=== PATIENT | male | born 1975 | race Caucasian/White ===

== ENCOUNTER 2021-01-05 13:08 | Outpatient (REF) | payer OTHER, SELFPAY ==
[2021-01-05 14:57] LABS: Erythrocyte Sedimentation Rate 2 MM/HR (0-15)
[2021-01-06 06:45] LABS: Syphilis Screen Nonreactive (Nonreactive)
[2021-01-07 05:31] LABS: Lyme Abs Screen <0.90 index
[2021-01-08 13:42] LABS: Anti Nuclear Antibody Screen NEGATIVE (NEGATIVE)
== END 2021-01-05 13:09 | disposition home or self-care (01) ==
LOC: HO.LAB 13:08
PROVIDERS: PCP Internal Medicine; Visit Provider Psychiatry & Neurology Neurology
DX: G93.40 Encephalopathy, unspecified (principal)
CPT/HCPCS: 36415; 85652; 86038; 86039; 86617; 86618; 86780

== ENCOUNTER 2023-02-16 15:46 | Outpatient (AMB) | payer OTHER, SELFPAY ==
[2023-02-16 16:21] VITALS: BP 120/70; PULSE 62; O2SAT 97; BMI 29.8
--- NOTE | 2023-02-16 16:21 | MHC.PC.OV ---
Vital Signs 02/16/23 16:21 Height 5 ft 9 in Weight 202 lb BMI 29.8 BP 120/70 Blood Pressure Location Lt brachial Position Sitting Pulse 62 Pulse Source Pulse Oximeter Pulse Oximetry (%) 97 Intake Visit Reasons: Annual PE Intake Note: pt is here for physical exam, pt states he would like oral medication vs topical for psoriasis and would like to request pcp to take over maintenance of pysch medications Allergies No Known Allergies Allergy (Verified 02/16/23 16:53) Medication List - Last Reconciled 02/16/23 by Raquel Pathak MD clotrimazole-betamethasone 1-0.05 % 1 appl topical BID 10 days escitalopram oxalate 10 mg PO DAILY escitalopram oxalate 5 mg PO DAILY fluocinonide 0.05% 1 appl topical DAILY fluocinonide 0.05% 1 appl topical DAILY PRN hydroxyzine pamoate 25 mg PO .qd PRN ibuprofen 600 mg PO Q6H PRN lorazepam 0.5 mg PO DAILY PRN mirtazapine 3.75 mg PO BEDTIME PRN propranolol ER 60 mg PO DAILY Tobacco use date assessed: 02/16/23 Dental Screening Dental Screen Date: 02/16/23 Did you have a dental visit in the last 12 months?: Yes Did you have a dental problem in the last 6 months where you did not have access to dental care?: No Was dental information given to patient?: Patient has dentist HPI Annual PE HPI Details 47-year-old male with generalized anxiety disorder currently stable and controlled on escitalopram 15 mg taken daily, takes hydroxyzine as needed for acute anxiety attacks, and has lorazepam reserved for severe acute anxiety attacks but has seldom needed to take. He states that he has been stable and controlled on these medications, and his psychiatrist at [facility], which he sees online, would like to see if he taken transfer care, as he is currently stable on present treatment. He has psoriasis mainly in the scalp,pinna, intergluteal crease and right knee, which he states is starting to progress, now causing pain in his right knee. He has been applying fluocinonide ointment to scalp and cream to in lesions which has not been helping as much. Like a referral to see a extrusion press supervisor. He was previously being seen by Dr. Nunez at the [facility] but is thinking of going to the [place] office where his sister works. He is due for a screening colonoscopy, but would like to see if he can do the Cologuard testing instead. [facility] Medical History (Updated 02/16/23 @ 17:54 by Raquel Pathak MD) Generalized anxiety disorder H/O multiple concussions Psoriasis Surgical History History of knee surgery Family History Father Essential hypertension Sister Depression Sister Mental health disorder Sister Mental health disorder Social History Household Members: Spouse and Children Housing: House Alcohol intake: current Alcohol intake frequency: a few times a week Alcohol type: beer Patient Tobacco Use Status: Never used Tobacco Current occupational status: employed Current occupation: [employer] [place] Current occupational exposures/hazards: No Cognitive needs: No Hearing needs: No Vision needs: No Questionnaire PHQ-9 Over the last 2 weeks, how often have you been bothered by any of the following problems? 1. Little interest or pleasure in doing things: not at all 2. Feeling down, depressed, or hopeless: not at all 3. Trouble falling or staying asleep, or sleeping too much: not at all 4. Feeling tired or having little energy: not at all 5. Poor appetite or overeating: not at all 6. Feeling bad about yourself - or that you are a failure or have let yourself or your family down: not at all 7. Trouble concentrating on things, such as reading the newspaper or watching television: not at all 8. Moving or speaking so slowly that other people could have noticed. Or the opposite - being so fidgety or restless that you have been moving around a lot more than usual: not at all 9. Thoughts that you would be better off or of hurting yourself in some way: not at all Total score: 0 Depression Screening Interpretation: Negative 23205 - PHQ-9 Billing: Yes Source: Developed by Drs. René Coburn, Lidia Og, Lukasz Jovel and colleagues, with an educational marion from [employer]. Thrive Questionnaire Date Thrive assessed: 02/16/23 I am a: Patient What is your living situation today?: I have a steady place to live Within the past 12 months, did the food you bought not last and you didn't have the money to get more?: Never true Within the past 12 months, did you worry whether your food would run out before you got money to buy more?: Never true Do you have trouble paying for medicines?: No Do you have trouble getting transportation to medical appointments?: No Do you have trouble paying your heating and electricity bill?: No Do you have trouble taking care of your child, family member or friend?: No Do you have trouble with day-to-day activities such as bathing, preparing meals, shopping, managing finances, etc.?: No Are you currently unemployed and looking for a job?: No Are you interested in more education?: No Please select the resources that you would like help with: None Currently or been in a relationship where the following occur: no concerns reported WILLA-7 AMB Questionnaire WILLA-7 Date WILLA - 7 assessed: 02/16/23 Feeling nervous, anxious, or on edge: 1 = Several days Not being able to stop or control worryin = Several days Worrying too much about different things: 0 = Not at all Trouble relaxin = Not at all Being so restless that it is hard to sit still: 0 = Not at all Becoming easily annoyed or irritable: 0 = Not at all Feeling afraid as if something awful might happen: 0 = Not at all Total WILLA-7 score (0-4 normal; 5-9 mild; 10-14 moderate; 15-21 severe): 2 Source: Developed by Drs. René Coburn, Lidia Og, Lukasz Jovel and colleagues, with an educational marion from [employer]. WILLA-7 Assessment Billing WILLA-7 Assessment Tool: WILLA-7 Assessment 20690 Review of Systems Const Denies body aches, Denies fatigue, Denies fever(s), Denies headache(s) and Denies weakness Eyes Denies change in vision, Denies eye discharge and Denies itchy eyes ENT Denies dizziness, Denies headache(s), Denies nasal congestion, Denies nasal discharge and Denies sore throat Card Denies chest pain, Denies lightheadedness, Denies palpitations and Denies dyspnea Resp Denies chest congestion, Denies cough, Denies dyspnea and Denies wheezing GI Denies abdominal pain, Denies change in bowel habits and Denies heartburn Denies hematuria, Denies difficulty urinating, Denies dysuria, Denies urinary frequency and Denies urinary urgency Musc Reports as per HPI Skin/Breast Reports as per HPI, Denies breast pain, Denies breast mass and Reports dry skin Neuro Denies dizziness, Denies headache(s) and Denies weakness Psych Reports no additional complaints and Reports as per HPI Endo Denies fatigue, Denies polydipsia, Denies polyuria and Denies palpitations Adam/Lymph Denies easy bruising Aller/Immun Denies itchy eyes, Denies seasonal rhinorrhea and Denies wheezing Physical exam (Primary Care) Vital Signs: Last Vital Signs Pulse 62 02/16/23 16:21 BP 120/70 02/16/23 16:21 Pulse Ox 97 02/16/23 16:21 BMI result Body Mass Index 29.8 Tobacco/Smoking Status: Tobacco use Status Tobacco use date assessed 02/16/23 02/16/23 16:27 Patient Tobacco Use Status Never used Tobacco 02/16/23 16:27 PHQ-9: PHQ-9 Score PHQ-9: Total score 0 02/16/23 17:02 Depression Screening Interpretation: Negative Thrive Assessment: Date of Thrive Assessment Date Thrive assessed 02/16/23 02/16/23 16:36 Currently or been in a relationship where the following occur: no concerns reported Const General: cooperative, healthy appearing, comfortable, no acute distress, alert and Physically active Nutritional Appearance: overweight Orientation/consciousness: patient oriented x3 HENFL Head: Yes normocephalic and Yes scalp lesion (Scaly lesion on scalp) Ears: hearing grossly normal bilaterally, TM's normal bilaterally, EAC's normal and external ear abnormal (Dry scaly lesion on pinna bilaterally) General nose exam: Normal external nose present Face and sinus: Yes face symmetric Mouth: Normal oral and palatal mucosa present, oropharynx normal and moist mucous membranes Eyes General: appearance normal, both eyes and all related structures Neck Neck: Yes full ROM, Yes no lymphadenopathy and Yes supple Thyroid: Thyroid normal Resp Effort & Inspection: normal respiratory effort and able to speak in complete sentences Auscultation: clear to auscultation bilaterally Cardio Rate: regular rate Rhythm: regular rhythm Heart sounds: S1 normal heart sound present and S2 normal heart sound present GI Inspection: Yes normal to inspection Palpation (GI): Soft to palpation, nontender, no guarding and no masses General: Yes Bimanual renal exam normal bilaterally and Yes no CVA tenderness Male General Exam: Yes normal external exam Back/Spine/Pelvis Back: no CVA tenderness and No back tenderness Skin Other: Raised scaly plaque formation on right knee, dry scaly rash on pinna bilaterally, scaly patch on intergluteal crease Neuro General: patient oriented x3, gait normal, tone normal, moves all extremities, Normal light touch and pain sensation, no focal motor deficits and CN's II-XI intact bilaterally Extrem General: Yes full ROM, Yes no joint enlargement, Yes no clubbing, cyanosis or edema and Yes normal gait Psych Appearance: grossly normal Mental Status: mental status grossly normal Attitude: cooperative Thought process: Normal thought process present Thought content: Normal thought content present Assessment and Plan Assessment & Plan (1) Annual visit for general adult medical examination with abnormal findings: Code(s): Z00.01 - Encounter for general adult medical examination with abnormal findings Plan: Will check appropriate labs. Continue with regular dental visit every 6 months and advised to get regular eye exams, at least every 2 years. Take adequate calcium in diet and vitamin-D 3 at 2000 IU per cap once a day, in addition to weight-bearing exercises to help maintain good muscle tone and weight control. Instructed to do self testicular exam to check for any mass, has had COVID vaccines but has not yet had his booster, recommended to get the new COVID booster that is coming out in the fall. Declines to get flu shots, up-to-date with his Tdap. Does not want to get a screening colonoscopy but will check with insurance if Cologuard covered and will do that instead (2) Psoriasis: Comment: Followed by dermatology, has lesions on scalp and arms Code(s): L40.9 - Psoriasis, unspecified Plan: Continue with fluocinonide ointment and cream as directed, patient states that he will try to get in to be seen at [facility] in [facility] and will call me if a referral is needed (3) Generalized anxiety disorder: Comment: Currently being seen by [facility] Psychiat[facility] Code(s): F41.1 - Generalized anxiety disorder Plan: Stable and controlled on escitalopram 15 mg once a day and takes hydroxyzine as needed for acute attacks of anxiety, reserves lorazepam for severe panic attacks, which he has seldom needed to take. As per patient his therapist and psychiatrist would like PCP to take over treatment as he has been stable and controlled on current medication. Orders: Orders Basic Metabolic Panel Fasting Today L40.9 - Psoriasis, unspecified, Z00.01 - Encounter for general adult medical examination with abnormal findings Alanine Aminotransferase Today L40.9 - Psoriasis, unspecified, Z00.01 - Encounter for general adult medical examination with abnormal findings Aspartate Amino Transferase Today L40.9 - Psoriasis, unspecified, Z00.01 - Encounter for general adult medical examination with abnormal findings Lipid Panel Today L40.9 - Psoriasis, unspecified, Z00.01 - Encounter for general adult medical examination with abnormal findings Review Flu Vaccine not done: patient reason (Declined) Coding Level of Care Code Est Pt Prev Care 40-64y(34430) Diagnoses Annual visit for general adult medical examination with abnormal findings Z00.01 Psoriasis L40.9 Generalized anxiety disorder F41.1 Additional Codes WILLA-7 Assessment Billing - WILLA-7 Assessment Tool: WILLA-7 Assessment 12930 ([id number])
== END 2023-02-16 17:15 | disposition home or self-care (01) ==
PROVIDERS: Visit Provider Internal Medicine
DX: Z00.01 Encounter for general adult medical examination with abnormal findings (principal); L40.9 Psoriasis, unspecified; F41.1 Generalized anxiety disorder
CPT/HCPCS: 99396

== ENCOUNTER 2023-02-21 06:06 | Outpatient (REF) | payer OTHER, SELFPAY ==
[2023-02-21 12:13] LABS: Alanine Aminotransferase 19 U/L (0-40); Anion Gap 12 (12-20); Aspartate Amino Transferase 20 U/L (5-37); Blood Urea Nitrogen 23 mg/dL (9-16); Calcium 9.8 mg/dL (8.4-10.2); Carbon Dioxide 24 mmol/L (22-29); Chloride 107 mmol/L (96-108); Cholesterol 231 mg/dL (<200); Estimated Glomerular Filt Rate > 60; Glucose Fasting 98 mg/dL (60-99); HDL Cholesterol 58 mg/dL (>40); LDL Cholesterol Calculated 139 mg/dL (<100); Sodium 139 mmol/L (135-145); Triglycerides 172 mg/dL (<150)
== END 2023-02-21 06:07 | disposition home or self-care (01) ==
LOC: HO.HMGCLDS 06:06
PROVIDERS: PCP Internal Medicine; Visit Provider Internal Medicine
DX: Z00.01 Encounter for general adult medical examination with abnormal findings (principal); L40.9 Psoriasis, unspecified
CPT/HCPCS: 36415; 80048; 80061; 84450; 84460

== ENCOUNTER 2023-04-04 06:12 | Outpatient (REF) | payer OTHER, SELFPAY ==
[2023-04-04 12:00] LABS: MANUAL DIFF FLAG NO
[2023-04-04 12:18] LABS: Basophils Absolute Auto 0.1 X10*3/uL (0.0-0.2); Basophils Percent Auto 0.8 % (0-2); Eosinophils Absolute Auto 0.3 X10*3/uL (0.0-0.4); Eosinophils Percent Auto 4.6 % (0-4); Hematocrit 43.1 % (42.0-52.0); Hemoglobin 14.5 g/dl (14.0-18.0); Imm Gran Abs Auto 0.02 X10*3/uL (0.00-0.03); Imm Gran Pct Auto 0.3 % (0.0-0.4); Lymphocytes Absolute Auto 2.3 X10*3/uL (1.2-4.9); Lymphocytes Percent Auto 34.8 % (20-40); Mean Corpuscular HGB Conc 33.6 g/dl (31.0-36.0); Mean Corpuscular Hemoglobin 30.2 pg (27.0-33.0); Mean Corpuscular Volume 89.8 fL (80.0-98.0); Monocytes Absolute Auto 0.6 X10*3/uL (0.1-1.2); Monocytes Percent Auto 8.8 % (2-11); Neutrophils Absolute Auto 3.3 x10*3/uL (2.0-8.3); Neutrophils Percent Auto 50.7 % (45-73); Platelet Count 331 X10*3/uL (160-400); Red Cell Distribution Width 12.4 % (11.0-16.0); White Blood Count 6.6 X10*3/uL (4.8-10.8)
[2023-04-04 12:26] LABS: Alanine Aminotransferase 18 U/L (0-40); Albumin Level 4.4 g/dL (3.5-5.0); Alkaline Phosphatase 90 U/L (39-117); Anion Gap 14 (12-20); Aspartate Amino Transferase 22 U/L (5-37); Bilirubin Total 1.1 mg/dL (0.0-1.0); Blood Urea Nitrogen 20 mg/dL (9-16); Carbon Dioxide 26 mmol/L (22-29); Chloride 106 mmol/L (96-108); Estimated Glomerular Filt Rate > 60; Glucose Random 104 mg/dL (60-115); Potassium 4.2 mmol/L (3.3-5.1); Sodium 142 mmol/L (135-145); Total Protein 7.5 g/dL (6.5-8.0)
[2023-04-05 03:59] LABS: HBS Num1 0.09 mIU/mL (0-7.99); HBsAGNum1 0.33 S/CO (0.00-0.99); Hepatitis B Surface Antigen Negative (Negative); ~HepC Num1 0.04 S/CO (0.00-0.79); ~Hepatitis B Surface Antibody NONREACTIVE (Nonreactive); ~Hepatitis C Antibody Nonreactive (Nonreactive)
[2023-04-06 00:34] LABS: Hepatitis B Core Antibody IgM NON-REACTIVE (NON-REACTIVE)
[2023-04-06 16:49] LABS: TS Negative Control Passed; TS Panel A 0; TS Panel B 1; TS Positive Control Passed; TSpotTB Negative (Negative)
== END 2023-04-04 06:13 | disposition home or self-care (01) ==
LOC: HO.HMGCLDS 06:12
PROVIDERS: PCP Internal Medicine; Visit Provider Nurse Practitioner Family
DX: L40.0 Psoriasis vulgaris (principal)
CPT/HCPCS: 36415; 80053; 85025; 86481; 86705; 86706; 86803; 87340

== ENCOUNTER 2023-07-05 08:03 | Outpatient (AMB) | payer OTHER, SELFPAY ==
--- NOTE | 2023-07-05 08:04 | AM.OFFWIN_ITS ---
Intake Vital Signs 07/05/23 08:06 BP 114/78 Respiration 20 Pulse 73 Pulse Source Pulse Oximeter Temp 98.3 F Temp Source Oral Pulse Oximetry (%) 98 Intake Visit Reasons: EST/body aches/congestion ([phone]) Patient Tobacco Use Status: Never used Tobacco Folder Machine Required: No Allergies No Known Allergies Allergy (Verified 07/05/23 08:04) Medication List - Last Reconciled 07/05/23 by Pinky Baum RN clotrimazole-betamethasone 1-0.05 % 1 appl topical BID 10 days escitalopram oxalate 10 mg PO DAILY escitalopram oxalate 5 mg PO DAILY fluocinonide 0.05% 1 appl topical DAILY fluocinonide 0.05% 1 appl topical DAILY PRN guselkumab (Tremfya) 100 mg subcut Q8W hydroxyzine pamoate 25 mg PO .qd PRN ibuprofen 600 mg PO Q6H PRN lorazepam 0.5 mg PO DAILY PRN mirtazapine 3.75 mg PO BEDTIME PRN propranolol ER 60 mg PO DAILY Do you need a note to return to daycare/school/sports/work: Yes Return to daycare/school/sports/work/other note: work HPI HPI Comments History of Present Illness Details He presents to office with cold symptoms Started wth post nasal drip this weekend Monday onset fatigue, body aches + congestion, sinus pressure, ST, cough He said gave covid test which was negative He has tried OTC medicine; DayQuil CHills, no fever documented Took a covid test yesterday which was negative [facility] Medical History (Updated 07/05/23 @ 08:19 by Elzbieta Veras PA-C) Generalized anxiety disorder Psoriasis H/O multiple concussions Surgical History History of knee surgery Family History Father Essential hypertension Sister Depression Sister Mental health disorder Sister Mental health disorder Social History Household Members: Spouse and Children Housing: House Alcohol intake: current Alcohol intake frequency: a few times a week Alcohol ty pe: beer Patient Tobacco Use Status: Never used Tobacco Current occupational status: employed Current occupation: [employer] Current occupational exposures/hazards: No Cognitive needs: No Hearing needs: No Vision needs: No Review of Systems Const Reports body aches, Reports chills, Reports fatigue and Denies fever(s) ENT Denies otalgia, Reports nasal congestion, Reports nasal discharge, Reports sinus pressure, Reports sore throat and Denies throat swelling Card Denies chest pain and Denies dyspnea Resp Reports chest congestion, Reports cough and Denies dyspnea GI Denies abdominal pain Endo Reports fatigue Aller/Immun Denies throat swelling Physical Exam Vital Signs: Last Vital Signs Temp 98.3 F 07/05/23 08:06 Pulse 73 07/05/23 08:06 Resp 20 07/05/23 08:06 BP 114/78 07/05/23 08:06 Pulse Ox 98 07/05/23 08:06 General: Non-toxic, NAD. Speaking full sentences. Skin: Warm dry throughout Eye: EOMI HENT: Airway patent. Uvula midline. No pharyngeal erythema or edema. 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 +rhinorrhea Bilateral canals clear. TM non-erythematous, non-bulging. No TM perforation or hemotympanum noted. Respiratory: CTA bilaterally. No wheezes, rales or rhonchi Cardiac: RRR. No murmur MSK: Full ROM extremities. Neurology: A/O. No aphasia or facial droop. Gait without abnormality Psych: Good mood and affect Assessment & Plan Assessment & Plan (1) Upper respiratory infection: Code(s): J06.9 - Acute upper respiratory infection, unspecified Qualifiers: URI type: unspecified viral URI Qualified Code(s): J06.9 - Acute upper respiratory infection, unspecified Plan: Patient seen and evaluated. Stable vital signs Lungs CTA Declined strep/flu/rsv/covid swab Tessalon Fluids/rest Work note given Patient gave verbal understanding and had no additional questions or concerns at time of discharge All questions answered Medications: New benzonatate 200 mg PO BID-TID PRN 14 caps 0RF cough Coding Level of Care Code Est Pt Level 3 (60148) Diagnoses Viral upper respiratory tract infection J06.9 URI type: unspecified viral URI
[2023-07-05 08:06] VITALS: BP 114/78; PULSE 73; RESP 20; TEMP 36.8; O2SAT 98
== END 2023-07-05 08:19 | disposition home or self-care (01) ==
PROVIDERS: PCP Internal Medicine; Visit Provider Physician Assistant
DX: J06.9 Acute upper respiratory infection, unspecified (principal)
CPT/HCPCS: 99213

== ENCOUNTER → 2023-08-22 12:50 | Outpatient (BNVA) | payer OTHER, SELFPAY | PROVIDERS: PCP Internal Medicine; Visit Provider Physician Assistant Medical | DX: S46.812A Strain of other muscles, fascia and tendons at shoulder and upper arm level, left arm, initial encounter (principal); X50.9XXA Other and unspecified overexertion or strenuous movements or postures, initial encounter | CPT/HCPCS: 73030; 99204 ==

== ENCOUNTER → 2023-08-29 15:13 | Outpatient (BNVA) | payer OTHER, SELFPAY | PROVIDERS: PCP Internal Medicine; Visit Provider Physician Assistant | DX: S46.812D Strain of other muscles, fascia and tendons at shoulder and upper arm level, left arm, subsequent encounter (principal); X50.9XXD Other and unspecified overexertion or strenuous movements or postures, subsequent encounter | CPT/HCPCS: 99213 ==

== ENCOUNTER → 2023-09-07 08:51 | Outpatient (BNVA) | payer OTHER, SELFPAY | PROVIDERS: PCP Internal Medicine; Visit Provider Physician Assistant | DX: S46.812D Strain of other muscles, fascia and tendons at shoulder and upper arm level, left arm, subsequent encounter (principal); X50.9XXD Other and unspecified overexertion or strenuous movements or postures, subsequent encounter | CPT/HCPCS: 99213 ==

== ENCOUNTER → 2023-09-21 15:14 | Outpatient (BNVA) | payer OTHER, SELFPAY | PROVIDERS: PCP Internal Medicine; Visit Provider Physician Assistant | DX: Z02.79 Encounter for issue of other medical certificate (principal) ==

== ENCOUNTER 2023-10-26 15:31 | Outpatient (AMB) | payer OTHER, SELFPAY ==
--- NOTE | 2023-10-26 15:37 | MHC.PC.OV ---
Vital Signs 10/26/23 15:38 Height 5 ft 9 in Weight 204 lb BMI 30.1 BP 120/75 Blood Pressure Location Rt brachial Position Sitting Pulse 75 Pulse Source Pulse Oximeter Pulse Oximetry (%) 98 Intake Visit Reasons: f/u 6mo depression/anxiety Intake Note: pt is here for depression and anxiety Section Supervisor Required: No Allergies No Known Allergies Allergy (Verified 10/26/23 16:07) Medication List - Last Reconciled 10/26/23 by Raquel Pathak MD calcipotriene 0.005% 1 appl topical BID clobetasol 0.05% topical clotrimazole-betamethasone 1-0.05 % 1 appl topical BID 10 days escitalopram oxalate 10 mg PO DAILY escitalopram oxalate 5 mg PO DAILY guselkumab (Tremfya) 100 mg subcut Q8W hydroxyzine pamoate 25 mg PO .qd PRN ibuprofen 800 mg PO TID lorazepam 0.5 mg PO DAILY PRN propranolol ER 60 mg PO DAILY triamcinolone acetonide 0.025% appl topical DAILY Tobacco use date assessed: 10/26/23 Dental Screening Dental Screen Date: 10/26/23 Did you have a dental visit in the last 12 months?: Yes Did you have a dental problem in the last 6 months where you did not have access to dental care?: No Was dental information given to patient?: Patient has dentist HPI f/u 6mo depression/anxiety HPI Details 48-year-old male with history of generalized anxiety disorder , here today for follow-up. He has been taking escitalopram 15 mg once a day, which has been helping control his mood swings, has not been having frequent anxiety attacks. Rarely needed to take hydroxyzine for acute attacks of anxiety. He states that he has been feeling well and has been going regularly to the gym to exercise. He previously was being followed by a psychiatrist online, but would like now to follow with PCP. [facility] Medical History Generalized anxiety disorder Psoriasis H/O multiple concussions Surgical History History of knee surgery Family History Father Essential hypertension Sister Depression Sister Mental health disorder Sister Mental health disorder Social History Household Members: Spouse and Children Housing: House Alcohol intake: current Alcohol intake frequency: a few times a week Alcohol type: beer Patient Tobacco Use Status: Never used Tobacco e-Cigarette/Vaping Use: Never Used service: No Current occupational status: employed Current occupation: [employer] Current occupational exposures/hazards: No Cognitive needs: No Hearing needs: No Vision needs: No Questionnaire PHQ-9 Over the last 2 weeks, how often have you been bothered by any of the following problems? 1. Little interest or pleasure in doing things: not at all 2. Feeling down, depressed, or hopeless: not at all 3. Trouble falling or staying asleep, or sleeping too much: not at all 4. Feeling tired or having little energy: not at all 5. Poor appetite or overeating: not at all 6. Feeling bad about yourself - or that you are a failure or have let yourself or your family down: not at all 7. Trouble concentrating on things, such as reading the newspaper or watching television: not at all 8. Moving or speaking so slowly that other people could have noticed. Or the opposite - being so fidgety or restless that you have been moving around a lot more than usual: not at all 9. Thoughts that you would be better off or of hurting yourself in some way: not at all Total score: 0 Depression Screening Interpretation: Negative Depression Screening Done: Yes 59509 - PHQ-9 Billing: Yes Source: Developed by Drs. René Coburn, Lidia Og, Lukasz Jovel and colleagues, with an educational marion from [employer]. Thrive Questionnaire Date Thrive assessed: 10/26/23 I am a: Patient What is your living situation today?: I have a steady place to live Within the past 12 months, did the food you bought not last and you didn't have the money to get more?: Never true Within the past 12 months, did you worry whether your food would run out before you got money to buy more?: Never true Do you have trouble paying for medicines?: No Do you have trouble getting transportation to medical appointments?: No Do you have trouble paying your heating and electricity bill?: No Do you have trouble taking care of your child, family member or friend?: No Do you have trouble with day-to-day activities such as bathing, preparing meals, shopping, managing finances, etc.?: No Are you currently unemployed and looking for a job?: No Are you interested in more education?: No Currently or been in a relationship where the following occur: no concerns reported THRIVE Score: 0 AUDIT C Alcohol Use Questionnaire (AUDIT-C) 1. How often do you have a drink containing alcohol?: 2-3 times a week 2. How many drinks containing alcohol do you have on a typical day when you are drinking?: 5 or 6 3. How often do you have six or more drinks on one occasion?: Less than monthly Total Score: 6 Score Reviewed/Action Taken: Yes WILLA-7 AMB Questionnaire WILLA-7 Date WILLA - 7 assessed: 10/26/23 Feeling nervous, anxious, or on edge: 1 = Several days Not being able to stop or control worryin = Not at all Worrying too much about different things: 0 = Not at all Trouble relaxin = Not at all Being so restless that it is hard to sit still: 0 = Not at all Becoming easily annoyed or irritable: 0 = Not at all Feeling afraid as if something awful might happen: 0 = Not at all Total WILLA-7 score (0-4 normal; 5-9 mild; 10-14 moderate; 15-21 severe): 1 Source: Developed by Drs. René Coburn, Lidia Og, Lukasz Jovel and colleagues, with an educational marion from [employer]. WILLA-7 Assessment Billing WILLA-7 Assessment Tool: WILLA-7 Assessment 95766 Review of Systems Const Reports no additional complaints ENT Reports no additional complaints and Reports nasal congestion Card Denies chest pain, Denies irregular heart rhythm and Denies palpitations Resp Reports no additional complaints GI Reports no additional complaints Skin/Breast Details: Currently sees Dr. Clemons for his psoriasis, controlled with Tremfya Psych Reports no additional complaints Endo Denies palpitations Physical exam (Primary Care) BMI result Body Mass Index 30.1 Tobacco/Smoking Status: Tobacco use Status Tobacco use date assessed 10/26/23 10/26/23 15:42 Patient Tobacco Use Status Never used Tobacco 10/26/23 15:42 e-Cigarette/Vaping Use Never Used 10/26/23 15:42 Depression Screening Interpretation: Negative Thrive Assessment: Date of Thrive Assessment Date Thrive assessed 02/16/23 10/26/23 15:42 Currently or been in a relationship where the following occur: no concerns reported Const General: cooperative, healthy appearing, comfortable, no acute distress, alert and Physically active Nutritional Appearance: overweight Orientation/consciousness: patient oriented x3 HENMT Head: Yes normocephalic General nose exam: Normal external nose present Face and sinus: Yes face symmetric Mouth: moist mucous membranes Eyes General: appearance normal, both eyes and all related structures Neck Neck: Yes full ROM, Yes no lymphadenopathy and Yes supple Thyroid: Thyroid normal Resp Effort & Inspection: normal respiratory effort and able to speak in complete sentences Auscultation: clear to auscultation bilaterally Cardio Rate: regular rate Rhythm: regular rhythm Heart sounds: S1 normal heart sound present and S2 normal heart sound present GI Inspection: Yes normal to inspection Palpation (GI): Soft to palpation, nontender, no guarding and no masses Neuro General: patient oriented x3, gait normal, tone normal, moves all extremities, Normal light touch and pain sensation, no focal motor deficits and CN's II-XI intact bilaterally Extrem General: Yes full ROM, Yes no joint enlargement, Yes no clubbing, cyanosis or edema and Yes normal gait Psych Appearance: grossly normal Mental Status: mental status grossly normal Attitude: cooperative Thought process: Normal thought process present Thought content: Normal thought content present Assessment and Plan Assessment & Plan (1) Generalized anxiety disorder: Code(s): F41.1 - Generalized anxiety disorder Plan: Anxiety controlled on escitalopram 15 mg taken once a day will continue on current treatment, takes hydroxyzine as needed for acute anxiety attacks and has not needed to take lorazepam for severe anxiety attacks (2) Psoriasis: Comment: Followed by dermatology, has lesions on scalp and arms Code(s): L40.9 - Psoriasis, unspecified Plan: Controlled on Tremfya Orders: Orders Alanine Aminotransferase 02/17/24 F41.1 - Generalized anxiety disorder, L40.9 - Psoriasis, unspecified, Z13.1 - Encounter for screening for diabetes mellitus, Z13.220 - Encounter for screening for lipoid disorders Lipid Panel 02/17/24 F41.1 - Generalized anxiety disorder, L40.9 - Psoriasis, unspecified, Z13.1 - Encounter for screening for diabetes mellitus, Z13.220 - Encounter for screening for lipoid disorders Basic Metabolic Panel Fasting 02/17/24 F41.1 - Generalized anxiety disorder, L40.9 - Psoriasis, unspecified, Z13.1 - Encounter for screening for diabetes mellitus, Z13.220 - Encounter for screening for lipoid disorders Aspartate Amino Transferase 02/17/24 F41.1 - Generalized anxiety disorder, L40.9 - Psoriasis, unspecified, Z13.1 - Encounter for screening for diabetes mellitus, Z13.220 - Encounter for screening for lipoid disorders Medications: New escitalopram oxalate 5 mg PO DAILY 90 tabs 1RF Refilled escitalopram oxalate 10 mg PO DAILY 90 tabs 1RF Coding Level of Care Code Est Pt Level 4 (11696) Diagnoses Generalized anxiety disorder F41.1 Psoriasis L40.9 Additional Codes WILLA-7 Assessment Billing - WILLA-7 Assessment Tool: WILLA-7 Assessment [id number] ([id number])
[2023-10-26 15:38] VITALS: BP 120/75; PULSE 75; O2SAT 98; BMI 30.1
== END 2023-10-26 16:51 | disposition home or self-care (01) ==
PROVIDERS: PCP Internal Medicine; Visit Provider Internal Medicine
DX: F41.1 Generalized anxiety disorder (principal); L40.9 Psoriasis, unspecified
CPT/HCPCS: 99214

== ENCOUNTER 2024-01-18 08:00 | Outpatient (AMB) | payer OTHER, SELFPAY ==
[2024-01-18 08:16] VITALS: BP 122/70; PULSE 66; TEMP 36.6; O2SAT 98; BMI 30.1
--- NOTE | 2024-01-18 08:16 | MHC.OFFWIV ---
Intake Vital Signs 01/18/24 08:16 01/18/24 08:43 01/18/24 08:43 01/18/24 08:43 Height 5 ft 9 in Weight 204 lb BMI 30.1 BP 122/70 130/92 H 128/90 H 124/84 Blood Pressure Location Rt brachial Rt brachial Rt brachial Rt brachial Position Sitting Supine Sitting Standing Pulse 66 Pulse Source Pulse Oximeter Temp 97.9 F Temp Source Temporal Artery Scan Pulse Oximetry (%) 98 Intake Visit Reasons: Dizziness, loss of balance Intake Note: pt is here for dizziness and loss of balance Patient Tobacco Use Status: Never used Tobacco Allergies No Known Allergies Allergy (Verified 01/18/24 08:16) Do you need a note to return to daycare/school/sports/work: Yes HPI HPI Comments History of Present Illness Details Patient is a 48-year-old male complaining of 2 days of ongoing dizziness, loss of balance and some nausea but no vomiting. He states he was at work a couple of days ago and when he looked up to cut a tree branch down, he suddenly felt dizzy like he was going to fall over, the same thing happened this morning when he woke up and got out of bed, he had to hold onto the wall to prevent himself from falling over. He states he has been eating and drinking normally except for lunch 2 days ago he did not eat because he was nauseous. He denies a history of cardiac issues, a change in hearing or vision. He denies a feeling of his heart racing but states he does have panic disorder so sometimes it happens when he is feeling anxious but it has not happened the last 2 days. [facility] Medical History Generalized anxiety disorder Psoriasis H/O multiple concussions Surgical History History of knee surgery Family History Father Essential hypertension Sister Depression Sister Mental health disorder Sister Mental health disorder Social History Household Members: Spouse and Children Housing: House Alcohol intake: current Alcohol intake frequency: a few times a week Alcohol type: beer Patient Tobacco Use Status: Never used Tobacco e-Cigarette/Vaping Use: Never Used service: No Current occupational status: employed Current occupation: [employer] Current occupational exposures/hazards: No Cognitive needs: No Hearing needs: No Vision needs: No Review of Systems Const All systems reviewed & are unremarkable except as noted in HPI and below Neuro Denies Abnormal speech present Physical Exam Vital Signs: Last Vital Signs Temp 97.9 F 01/18/24 08:16 Pulse 66 01/18/24 08:16 BP 122/70 01/18/24 08:16 Pulse Ox 98 01/18/24 08:16 BMI result Body Mass Index 30.1 Const General: cooperative, healthy appearing, comfortable, no acute distress and well developed Orientation/consciousness: patient oriented x3 Limitations: no limitations HEENT Head: Yes normal to inspection, Yes normocephalic and Yes atraumatic Ears: hearing grossly normal bilaterally, external ears normal and TM's normal bilaterally General nose exam: Normal external nose present Face and sinus: Yes normal facial exam Mouth: Normal oral and palatal mucosa present Throat: Yes tonsils normal, Yes uvula midline and Yes posterior oropharynx abnormal (Erythematous) Eyes General: appearance normal, both eyes and all related structures Neck Neck: Yes normal visual inspection and Yes full ROM Resp Effort & Inspection: normal respiratory effort and able to speak in complete sentences Auscultation: clear to auscultation bilaterally Cardio Rate: regular rate Rhythm: regular rhythm Heart sounds: normal S1 and S2 GI Inspection: Yes normal to inspection Palpation (GI): Soft to palpation and nontender Skin General skin exam: no rashes or lesions noted Neuro General: patient oriented x3 Cranial nerves: Yes CN's II-XII intact bilaterally, Yes Bilaterally intact EOM present and Yes Nystagmus not present Cognition (Neuro): normal cognition Speech: No Abnormal speech present Motor exam (neuro): 5/5 motor strength present throughout and Pronator motor function not present Extrem General: Yes normal to inspection Office Procedures EKG [id number], Complete Assessment & Plan Assessment & Plan (1) Postural dizziness: Code(s): R42 - Dizziness and giddiness Plan: Vital signs stable, physical exam unremarkable, ears clear. EKG normal sinus rhythm 61BPM, no acute changes, no changes from prior. Orthostatics negative. Likely BPPV, gave pt Dutch maneuver excercises to try at home, recommended he do it with his there who is a nurse. If no resolution in symptoms, please follow-up with PCP. Plan See above Coding Level of Care Code Est Pt Level 4 (91067) Diagnoses Postural dizziness R42 CPT Codes EKG - CPT: 10609-[id number], Complete ([id number])
[2024-01-18 08:43] VITALS: BP 124/84; BP 128/90; BP 130/92
== END 2024-01-18 09:13 | disposition home or self-care (01) ==
PROVIDERS: PCP Internal Medicine; Visit Provider Physician Assistant
DX: R42 Dizziness and giddiness (principal)
CPT/HCPCS: 93000; 99214

== ENCOUNTER 2024-01-29 06:05 | Outpatient (REF) | payer OTHER, SELFPAY ==
[2024-01-29 10:09] LABS: MANUAL DIFF FLAG NO
[2024-01-29 10:13] LABS: Basophils Absolute Auto 0.1 X10*3/uL (0.0-0.2); Basophils Percent Auto 0.9 % (0-2); Eosinophils Absolute Auto 0.3 X10*3/uL (0.0-0.4); Eosinophils Percent Auto 5.1 % (0-4); Hematocrit 42.3 % (42.0-52.0); Hemoglobin 14.3 g/dl (14.0-18.0); Imm Gran Abs Auto 0.01 X10*3/uL (0.00-0.03); Imm Gran Pct Auto 0.2 % (0.0-0.4); Lymphocytes Absolute Auto 2.3 X10*3/uL (1.2-4.9); Lymphocytes Percent Auto 41.7 % (20-40); Mean Corpuscular HGB Conc 33.8 g/dl (31.0-36.0); Mean Corpuscular Hemoglobin 30.2 pg (27.0-33.0); Mean Corpuscular Volume 89.4 fL (80.0-98.0); Monocytes Absolute Auto 0.6 X10*3/uL (0.1-1.2); Monocytes Percent Auto 10.1 % (2-11); Neutrophils Absolute Auto 2.3 x10*3/uL (2.0-8.3); Platelet Count 318 X10*3/uL (160-400); Red Blood Count 4.73 X10*6/uL (4.60-5.80); Red Cell Distribution Width 12.1 % (11.0-16.0); White Blood Count 5.5 X10*3/uL (4.8-10.8)
[2024-01-29 10:45] LABS: Alanine Aminotransferase 21 U/L (0-40); Albumin Level 4.3 g/dL (3.5-5.0); Alkaline Phosphatase 82 U/L (39-117); Anion Gap 12 (12-20); Aspartate Amino Transferase 22 U/L (5-37); Bilirubin Total 1.4 mg/dL (0.0-1.0); Blood Urea Nitrogen 25 mg/dL (9-16); Carbon Dioxide 27 mmol/L (22-29); Chloride 104 mmol/L (96-108); Estimated Glomerular Filt Rate > 60; Glucose Random 98 mg/dL (60-115); Potassium 3.9 mmol/L (3.3-5.1); Sodium 139 mmol/L (135-145); Total Protein 7.3 g/dL (6.5-8.0)
== END 2024-01-29 06:06 | disposition home or self-care (01) ==
LOC: HO.HMGCLDS 06:05
PROVIDERS: PCP Internal Medicine; Visit Provider Nurse Practitioner Family
DX: L40.0 Psoriasis vulgaris (principal)
CPT/HCPCS: 36415; 80053; 85025

== ENCOUNTER 2024-02-21 08:06 | Outpatient (AMB) | payer OTHER, SELFPAY ==
--- NOTE | 2024-02-21 08:08 | MHC.OFFWIV ---
Intake Vital Signs 02/21/24 08:09 Weight 194 lb BP 130/80 Blood Pressure Location Rt brachial Position Sitting Pulse 66 Pulse Source Pulse Oximeter Temp 97.9 F Temp Source Oral Pulse Oximetry (%) 98 Oxygen Delivery Method Room Air Intake Visit Reasons: EP- SOB, sinus congestion, body aches Intake Note: Patient here for body aches ,headache, SOB and congestion which started Yesterday. Patient Tobacco Use Status: Never used Tobacco Allergies No Known Allergies Allergy (Verified 02/21/24 08:10) Do you need a note to return to daycare/school/sports/work: Yes HPI HPI Comments History of Present Illness Details Patient is a 48-year-old male complaining of 2 days of what started with a tickle in his throat and now has a sore throat with head congestion and sinus pain. He also states he works out regularly and is in good shape but now he does a simple task and he gets short of breath. He denies a history of asthma or COPD. He denies any fevers, ear pain, nausea vomiting or diarrhea. [facility] Medical History Generalized anxiety disorder Psoriasis H/O multiple concussions Surgical History History of knee surgery Family History Father Essential hypertension Sister Depression Sister Mental health disorder Sister Mental health disorder Social History Household Members: Spouse and Children Housing: House Alcohol intake: current Alcohol intake frequency: a few times a week Alcohol type: beer Patient Tobacco Use Status: Never used Tobacco e-Cigarette/Vaping Use: Never Used service: No Current occupational status: employed Current occupation: [employer] Current occupational exposures/hazards: No Cognitive needs: No Hearing needs: No Vision needs: No Review of Systems Const All systems reviewed & are unremarkable except as noted in HPI and below Physical Exam Vital Signs: Last Vital Signs Temp 97.9 F 02/21/24 08:09 Pulse 66 02/21/24 08:09 BP 130/80 02/21/24 08:09 Pulse Ox 98 02/21/24 08:09 Oxygen Delivery Method Room Air 02/21/24 08:09 Const General: cooperative, healthy appearing, comfortable and no acute distress Orientation/consciousness: patient oriented x3 Limitations: no limitations HEENT Head: Yes normal to inspection Ears: hearing grossly normal bilaterally, external ears normal and TM's normal bilaterally General nose exam: Normal external nose present, Normal nares present and No nasal discharge present Face and sinus: Yes normal facial exam and Yes sinuses nontender Mouth: Normal oral and palatal mucosa present and moist mucous membranes Throat: Yes tonsils normal, Yes uvula midline and Yes posterior oropharynx abnormal (Erythema) Eyes General: appearance normal, both eyes and all related structures Neck Neck: Yes normal visual inspection Resp Effort & Inspection: normal respiratory effort, able to speak in complete sentences, no respiratory distress, not tachypneic, no tripod positioning and no use of accessory muscles Auscultation: clear to auscultation bilaterally Cardio Rate: regular rate Rhythm: regular rhythm Heart sounds: normal S1 and S2 Skin General skin exam: no rashes or lesions noted Neuro General: patient oriented x3 Extrem General: Yes normal to inspection and Yes no clubbing, cyanosis or edema Assessment & Plan Assessment & Plan (1) Upper respiratory infection: Code(s): J06.9 - Acute upper respiratory infection, unspecified Qualifiers: URI type: unspecified viral URI Qualified Code(s): J06.9 - Acute upper respiratory infection, unspecified Plan: Vital signs are stable and patient is well-appearing however with his feeling of shortness of breath when he does a task, we will get a chest x-ray. We did discuss Paxlovid and patient is not interested in it if he is positive for COVID. Recommended he would hurt himself or his symptoms with [id number] medications. Advised we would call him with the test results from the COVID flu and RSV as well as the chest x-ray results Plan See above Orders: Orders SARS-CoV2/FLU/RSV Today J06.9 - Acute upper respiratory infection, unspecified XR chest 2V Today R05.9 - Cough, unspecified Coding Level of Care Code Est Pt Level 3 (55904) Diagnoses Viral upper respiratory tract infection J06.9 URI type: unspecified viral URI
[2024-02-21 08:09] VITALS: BP 130/80; PULSE 66; TEMP 36.6; O2SAT 98
== END 2024-02-21 08:51 | disposition home or self-care (01) ==
PROVIDERS: PCP Internal Medicine; Visit Provider Physician Assistant
DX: J06.9 Acute upper respiratory infection, unspecified (principal)
CPT/HCPCS: 99213

== ENCOUNTER 2024-02-21 08:32 | Outpatient (REF) | payer OTHER, SELFPAY ==
[2024-02-21 11:59] LABS: Influenza A PCR NEGATIVE (Negative); Influenza B PCR NEGATIVE (Negative); Resp Syncy Virus RNA Qual PCR NEGATIVE (Negative); SARS COV2 PCR INHOUSE NEGATIVE (Negative)
== END 2024-02-21 08:33 | disposition home or self-care (01) ==
LOC: HO.LAB 08:32
PROVIDERS: Visit Provider Physician Assistant
DX: J06.9 Acute upper respiratory infection, unspecified (principal)
CPT/HCPCS: 0241U

== ENCOUNTER 2024-02-21 08:37 | Outpatient (REF) | payer OTHER, SELFPAY ==
--- NOTE | ~2024-02-21 | XR_ITS ---
EXAMINATION: XR CHEST CLINICAL INFORMATION: Cough COMPARISON: None available. TECHNIQUE: 2 views of the chest were obtained. FINDINGS: The lungs are adequately expanded. No focal consolidation. No pleural effusions or pneumothorax. The cardiomediastinal silhouette is within normal limits. No acute osseous abnormality. XR/XR chest 2V IMPRESSION: No acute pulmonary disease. Electronically signed by: Jose Otoole MD 02/21/2024 08:52 AM EDT RP
== END 2024-02-21 08:38 | disposition home or self-care (01) ==
LOC: HO.HMGCX 08:37
PROVIDERS: PCP Internal Medicine; Visit Provider Physician Assistant
DX: R05.9 Cough, unspecified (principal)
CPT/HCPCS: 71046

== ENCOUNTER 2024-04-12 09:50 | Outpatient (AMB) | payer OTHER, SELFPAY ==
--- NOTE | 2024-04-12 09:45 | A.OFFPC_ITS ---
Intake Visit Reasons: anxiety/panic attack Intake Note: Pt is having a f/u anxiety/panic attack Allergies No Known Allergies Allergy (Verified 04/12/24 10:03) Medication List - Last Reconciled 04/12/24 by Raquel Pathak MD clotrimazole-betamethasone 1-0.05 % 1 appl topical BID 10 days escitalopram oxalate 5 mg PO DAILY escitalopram oxalate 10 mg PO DAILY guselkumab (Tremfya) 100 mg subcut Q8W hydroxyzine pamoate 25 mg PO DAILY PRN lorazepam 0.5 mg PO DAILY PRN Tobacco use date assessed: 04/12/24 Dental Screening Dental Screen Date: 04/12/24 Did you have a dental visit in the last 12 months?: No Did you have a dental problem in the last 6 months where you did not have access to dental care?: No Was dental information given to patient?: Patient has dentist HPI anxiety/panic attack HPI Details 48-year-old male with history of psorias is, and generalized anxiety disorder, here today for follow-up. He states that his anxiety attacks have been well controlled on escitalopram takes 30 mg daily, and has hydroxyzine to take as needed for acute anxiety attacks. Patient however states that work has been very stressful lately and has been noticing that he has been getting more frequent anxiety attacks at work, sometimes with hydroxyzine not helping, and has to take an occasional lorazepam when this happens. He has also been employing breathing techniques and behavioral modifications taught to him by his therapist. No longer sees one, and currently not being seen by Psychiatry. [facility] Medical History (Updated 04/12/24 @ 12:17 by Raquel Pathak MD) Generalized anxiety disorder Psoriasis H/O multiple concussions Surgical History History of knee surgery Family History Father Essential hypertension Sister Depression Sister Mental health disorder Sister Mental health disorder Social History Household Members: Spouse and Children Housing: House Alcohol intake: current Alcohol intake frequency: a few times a week Alcohol type: beer Patient Tobacco Use Status: Never used Tobacco e-Cigarette/Vaping Use: Never Used service: No Current occupational status: employed Current occupation: [employer] Current occupational exposures/hazards: No Cognitive needs: No Hearing needs: No Vision needs: No Questionnaire PHQ-9 Over the last 2 weeks, how often have you been bothered by any of the following problems? 1. Little interest or pleasure in doing things: several days 2. Feeling down, depressed, or hopeless: several days 3. Trouble falling or staying asleep, or sleeping too much: not at all 4. Feeling tired or having little energy: not at all 5. Poor appetite or overeating: not at all 6. Feeling bad about yourself - or that you are a failure or have let yourself or your family down: not at all 7. Trouble concentrating on things, such as reading the newspaper or watching television: not at all 8. Moving or speaking so slowly that other people could have noticed. Or the opposite - being so fidgety or restless that you have been moving around a lot more than usual: not at all 9. Thoughts that you would be better off or of hurting yourself in some way: not at all Total score: 2 Depression Screening Interpretation: Negative Depression Screening Done: Yes 69232 - PHQ-9 Billing: Yes Source: Developed by Drs. René Coburn, Lidia Og, Lukasz Jovel and colleagues, with an educational marion from [employer]. Thrive Questionnaire Date Thrive assessed: 04/12/24 I am a: Patient What is your living situation today?: I have a steady place to live Within the past 12 months, did the food you bought not last and you didn't have the money to get more?: Never true Within the past 12 months, did you worry whether your food would run out before you got money to buy more?: Never true Do you have trouble paying for medicines?: No Do you have trouble getting transportation to medical appointments?: No Do you have trouble paying your heating and electricity bill?: No Do you have trouble taking care of your child, family member or friend?: No Do you have trouble with day-to-day activities such as bathing, preparing meals, shopping, managing finances, etc.?: No Are you currently unemployed and looking for a job?: No Are you interested in more education?: No THRIVE Score: 0 AUDIT C Alcohol Use Questionnaire (AUDIT-C) 2. How many drinks containing alcohol do you have on a typical day when you are drinking?: 5 or 6 3. How often do you have six or more drinks on one occasion?: Weekly Total Score: 5 WILLA-7 AMB Questionnaire WILLA-7 Date WILLA - 7 assessed: 04/12/24 Feeling nervous, anxious, or on edge: 2 = More than half the days Not being able to stop or control worryin = More than half the days Worrying too much about different things: 2 = More than half the days Trouble relaxin = More than half the days Being so restless that it is hard to sit still: 2 = More than half the days Becoming easily annoyed or irritable: 2 = More than half the days Feeling afraid as if something awful might happen: 2 = More than half the days Total WILLA-7 score (0-4 normal; 5-9 mild; 10-14 moderate; 15-21 severe): 14 Source: Developed by Drs. René Coburn, Lidia Og, Lukasz Jovel and colleagues, with an educational marion from [employer]. WILLA-7 Assessment Billing WILLA-7 Assessment Tool: WILLA-7 Assessment 01628 Review of Systems Const Reports no additional complaints ENT Reports no additional complaints Card Denies chest pain, Denies irregular heart rhythm and Denies palpitations Resp Reports no additional complaints GI Reports no additional complaints Skin/Breast Details: Currently sees Dr. Clemons for his psoriasis, controlled with Tremfya Psych Reports as per HPI Endo Denies palpitations Physical exam (Primary Care) Tobacco/Smoking Status: Tobacco use Status Tobacco use date assessed 04/12/24 04/12/24 09:49 Patient Tobacco Use Status Never used Tobacco 04/12/24 09:49 e-Cigarette/Vaping Use Never Used 04/12/24 09:49 PHQ-9: PHQ-9 Score PHQ-9: Total score 2 04/12/24 10:07 Depression Screening Interpretation: Negative Thrive Assessment: Date of Thrive Assessment Date Thrive assessed 04/12/24 04/12/24 09:49 Telehealth Telehealth Telehealth Platform: [facility] Location of provider rendering services: practice address Location of patient: address on file Patient Identification confirmed using: Name, : Yes Telehealth method: video Patient verbally consented to treatment: Yes Patient verbally consented to billing insurance company: Yes Patient informed of any privacy concerns related to visit: Yes Minutes spent on Phone/Video with Pt.: 15 Coding Level of Care Code Tele Est Pt Level 3 (12557) Diagnoses Generalized anxiety disorder F41.1 Additional Codes WILLA-7 Assessment Billing - WILLA-7 Assessment Tool: WILLA-7 Assessment 00247 ([id number]) Assessment & Plan Assessment & Plan (1) Generalized anxiety disorder: Code(s): F41.1 - Generalized anxiety disorder Category: Medical Plan: Will continue on escitalopram 30 mg once a day, takes hydroxyzine as needed for acute anxiety attacks and an occasional lorazepam for severe anxiety attacks. Does not want to be referred back for therapy and feels that he can control his anxiety attacks with behavioral techniques that he has been taught in the past. Will see him for follow-up on his physical exam on 08/2024
== END 2024-04-12 10:19 | disposition home or self-care (01) ==
LOC: HO.HMCC 09:50
PROVIDERS: PCP Internal Medicine; Visit Provider Internal Medicine
DX: F41.1 Generalized anxiety disorder (principal)

== ENCOUNTER → 2024-04-12 09:50 | Outpatient (BNVA) | payer OTHER, SELFPAY | PROVIDERS: PCP Internal Medicine; Visit Provider Internal Medicine | DX: F41.1 Generalized anxiety disorder (principal); Z79.899 Other long term (current) drug therapy | CPT/HCPCS: 96127 ==

== ENCOUNTER → 2024-04-24 12:30 | Outpatient (BNVA) | payer OTHER, SELFPAY | PROVIDERS: PCP Internal Medicine; Visit Provider Physician Assistant | DX: S46.912A Strain of unspecified muscle, fascia and tendon at shoulder and upper arm level, left arm, initial encounter (principal); X50.3XXA Overexertion from repetitive movements, initial encounter | CPT/HCPCS: 73030; 99204 ==

== ENCOUNTER → 2024-04-29 07:53 | Outpatient (BNVA) | payer OTHER, SELFPAY | PROVIDERS: PCP Internal Medicine; Visit Provider Physician Assistant Medical | DX: M24.812 Other specific joint derangements of left shoulder, not elsewhere classified (principal); S46.812D Strain of other muscles, fascia and tendons at shoulder and upper arm level, left arm, subsequent encounter; X50.3XXD Overexertion from repetitive movements, subsequent encounter | CPT/HCPCS: 99213 ==

== ENCOUNTER → 2024-05-07 15:11 | Outpatient (BNVA) | payer OTHER, SELFPAY | PROVIDERS: PCP Internal Medicine; Visit Provider Physician Assistant Medical | DX: S46.912D Strain of unspecified muscle, fascia and tendon at shoulder and upper arm level, left arm, subsequent encounter (principal); X50.3XXD Overexertion from repetitive movements, subsequent encounter; M24.812 Other specific joint derangements of left shoulder, not elsewhere classified; M75.102 Unspecified rotator cuff tear or rupture of left shoulder, not specified as traumatic; M62.81 Muscle weakness (generalized) | CPT/HCPCS: 99213 ==

== ENCOUNTER 2024-05-17 06:09 | Outpatient (REF) | payer OTHER, SELFPAY ==
[2024-05-17 10:48] LABS: Alanine Aminotransferase 25 U/L (0-40); Anion Gap 10 (12-20); Aspartate Amino Transferase 24 U/L (5-37); Blood Urea Nitrogen 23 mg/dL (9-16); Carbon Dioxide 27 mmol/L (22-29); Chloride 105 mmol/L (96-108); Cholesterol 220 mg/dL (<200); Estimated Glomerular Filt Rate > 60; Glucose Fasting 87 mg/dL (60-99); HDL Cholesterol 71 mg/dL (>40); LDL Cholesterol Calculated 128 mg/dL (<100); Potassium 3.8 mmol/L (3.3-5.1); Sodium 138 mmol/L (135-145); Triglycerides 106 mg/dL (<150)
[2024-05-20 10:43] LABS: TS Negative Control Passed; TS Panel A 1; TS Panel B 4; TS Positive Control Passed; TSpotTB Negative (Negative)
== END 2024-05-17 06:10 | disposition home or self-care (01) ==
LOC: HO.HMGCLDS 06:09
PROVIDERS: PCP Internal Medicine; Visit Provider Nurse Practitioner Family
DX: F41.1 Generalized anxiety disorder (principal); Z13.220 Encounter for screening for lipoid disorders; Z13.1 Encounter for screening for diabetes mellitus; L40.9 Psoriasis, unspecified; Z71.89 Other specified counseling; L40.0 Psoriasis vulgaris
CPT/HCPCS: 36415; 80048; 80061; 84450; 84460; 86481

== ENCOUNTER 2024-09-30 13:06 | Outpatient (AMB) | payer OTHER, SELFPAY ==
--- NOTE | 2024-09-30 13:15 | MHC.OFFVIS ---
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 He has previously injured the left Shoulder in Jul due to a similar work related incident. Since the injury in March he was seen at [facility] where he had an injection 05/09/24, this injection was mildly helpful , he also tried and failed physical therapy and it was recommended that he have an Arthroscopy. He is looking to have surgery He is at work light duty - no overhead work, no lifting over 20 lbs. Allergies No Known Allergies Allergy (Verified 09/30/24 13:21) HPI HPI COMPUTER REPAIR TECHNICIAN- Left shoulder injury WC DOI 04/24/2024: Details: Maurice is a 49 year old right hand dominant male who presents today as a new patient with complaints of left shoulder pain s/p WC Injury 04/24/2024. 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 He has previously injured the left Shoulder in Jul due to a similar work related incident. Since the injury in March he was seen at [facility] where he had an injection 05/09/24, this injection was mildly helpful , he also tried and failed physical therapy and it was recommended that he have an Arthroscopy. He is looking to have surgery He is at work light duty - no overhead work, no lifting over 20 lbs. HPI Comments Details: Maurice is a 49 year old right hand dominant male who presents today as a new patient with complaints of left shoulder pain s/p WC Injury 04/24/2024. 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 He has previously injured the left Shoulder in Jul due to a similar work related incident. Since the injury in March he was seen at [facility] where he had an injection 05/09/24, this injection was mildly helpful , he also tried and failed physical therapy and it was recommended that he have an Arthroscopy. He is looking to have surgery He is at work light duty - no overhead work, no lifting over 20 lbs. [facility] Medical History (Updated 10/02/24 @ 12:46 by Josue Fuentes MD) Generalized anxiety disorder Psoriasis H/O multiple concussions Surgical History History of knee surgery Family History Father Essential hypertension Sister Depression Sister Mental health disorder Sister Mental health disorder Social History Household Members: Spouse and Children Housing: House Alcohol intake: current Alcohol intake frequency: a few times a week Alcohol type: beer Patient Tobacco Use Status: Never used Tobacco e-Cigarette/Vaping Use: Never Used service: No Current occupational status: employed Current occupation: [employer] Current occupational exposures/hazards: No Cognitive needs: No Hearing needs: No Vision needs: No Physical Exam Vital Signs: BMI result Body Mass Index 29.5 Extrem Other: 4+/5 EC Markedly + Raya/Neer 35/90/130/L5 Assessment & Plan Assessment & Plan (1) Incomplete rotator cuff tear or rupture of left shoulder, not specified as traumatic: Code(s): M75.112 - Incomplete rotator cuff tear or rupture of left shoulder, not specified as traumatic Category: Medical Plan: This is a 49 yo M who injured his left shoulder at work 5 months ago. He has undergone PT and had injections. He continues to feel that he is unable to comfortably lift his arm and perform ADLs. His MRI and exam are consistent with partial RTC tear and sub-acromial inflammation. I discussed surgery with him. Given the failure of conservative measures I recommend shoulder arthroscopy with sub-acromial decompression and possible rotator cuff repair. I discussed the biceps and the possibility of tentomy vs tenodesis and the AC joint. He understands the surgery and I discussed the risks benefits and alternatives including but not limited to the risk of pain, infection, stiffness, need for further surgery as well as potential medical complications such as blood clots, pulmonary embolism and cardiac complications. Coding Level of Care Code New Pt Level 4 (04487) Diagnoses Incomplete rotator cuff tear or rupture of left shoulder, not specified as traumatic M75.112
[2024-09-30 13:20] VITALS: BMI 29.5
== END 2024-09-30 13:48 | disposition home or self-care (01) ==
LOC: HO.HOS 13:07
PROVIDERS: PCP Internal Medicine; Visit Provider Orthopaedic Surgery
DX: M75.112 Incomplete rotator cuff tear or rupture of left shoulder, not specified as traumatic (principal)
CPT/HCPCS: 99204

== ENCOUNTER → 2024-09-30 13:06 | Outpatient (BNVA) | payer OTHER, SELFPAY | PROVIDERS: PCP Internal Medicine; Visit Provider Orthopaedic Surgery | DX: M75.112 Incomplete rotator cuff tear or rupture of left shoulder, not specified as traumatic (principal) | CPT/HCPCS: 99202 ==

== ENCOUNTER 2024-10-10 06:05 | Outpatient (REF) | payer OTHER, SELFPAY ==
[2024-10-10 10:09] LABS: MANUAL DIFF FLAG NO
[2024-10-10 10:16] LABS: Basophils Absolute Auto 0.1 X10*3/uL (0.0-0.2); Basophils Percent Auto 1.4 % (0-2); Eosinophils Absolute Auto 0.4 X10*3/uL (0.0-0.4); Hematocrit 44.1 % (42.0-52.0); Hemoglobin 14.7 g/dl (14.0-18.0); Imm Gran Abs Auto 0.01 X10*3/uL (0.00-0.03); Imm Gran Pct Auto 0.2 % (0.0-0.4); Lymphocytes Absolute Auto 2.4 X10*3/uL (1.2-4.9); Mean Corpuscular HGB Conc 33.3 g/dl (31.0-36.0); Mean Corpuscular Hemoglobin 29.8 pg (27.0-33.0); Mean Corpuscular Volume 89.5 fL (80.0-98.0); Mean Platelet Volume 9.8 fL (9.4-12.4); Monocytes Absolute Auto 0.6 X10*3/uL (0.1-1.2); Neutrophils Absolute Auto 2.4 x10*3/uL (2.0-8.3); Neutrophils Percent Auto 41.4 % (45-73); Platelet Count 323 X10*3/uL (160-400); Red Blood Count 4.93 X10*6/uL (4.60-5.80); Red Cell Distribution Width 11.9 % (11.0-16.0); White Blood Count 5.8 X10*3/uL (4.8-10.8)
[2024-10-10 10:54] LABS: Alanine Aminotransferase 27 U/L (0-40); Anion Gap 11 (12-20); Aspartate Amino Transferase 29 U/L (5-37); Blood Urea Nitrogen 24 mg/dL (9-16); Calcium 9.9 mg/dL (8.4-10.2); Carbon Dioxide 28 mmol/L (22-29); Chloride 105 mmol/L (96-108); Cholesterol 210 mg/dL (<200); Estimated Glomerular Filt Rate > 60; Glucose Fasting 94 mg/dL (60-99); HDL Cholesterol 62 mg/dL (>40); LDL Cholesterol Calculated 123 mg/dL (<100); Potassium 4.1 mmol/L (3.3-5.1); Sodium 140 mmol/L (135-145); Triglycerides 128 mg/dL (<150)
[2024-10-10 11:10] LABS: Vitamin D 25-OH Total 57.2 ng/mL (>30)
== END 2024-10-10 06:06 | disposition home or self-care (01) ==
LOC: HO.HMGCLDS 06:05
PROVIDERS: PCP Internal Medicine; Visit Provider Internal Medicine
DX: Z00.01 Encounter for general adult medical examination with abnormal findings (principal); F41.1 Generalized anxiety disorder; L40.9 Psoriasis, unspecified; M75.112 Incomplete rotator cuff tear or rupture of left shoulder, not specified as traumatic; Z71.89 Other specified counseling; R42 Dizziness and giddiness; Z13.220 Encounter for screening for lipoid disorders; Z13.1 Encounter for screening for diabetes mellitus
CPT/HCPCS: 36415; 80048; 80061; 82306; 84450; 84460; 85025; 96127

== ENCOUNTER 2024-10-10 15:21 | Outpatient (AMB) | payer OTHER, SELFPAY ==
--- NOTE | 2024-10-10 15:38 | MHC.PC.OV ---
Vital Signs 10/10/24 15:46 10/10/24 16:16 Height 5 ft 9 in Weight 203 lb BMI 30.0 BP 140/82 H 130/80 Blood Pressure Location Rt brachial Lt brachial Position Sitting Sitting Respiration 16 Pulse 67 Pulse Source Pulse Oximeter Temp 98.0 F Temp Source Oral Pulse Oximetry (%) 97 Oxygen Delivery Method Room Air Intake Visit Reasons: PE Intake Note: Pt is here today for his PE Allergies No Known Allergies Allergy (Verified 10/10/24 16:01) Medication List - Last Reconciled 10/10/24 by Raquel Pathak MD clotrimazole-betamethasone 1-0.05 % 1 appl topical BID 10 days escitalopram oxalate 5 mg PO DAILY escitalopram oxalate 10 mg PO DAILY guselkumab (Tremfya) 100 mg subcut Q8W hydroxyzine pamoate 25 mg PO DAILY PRN lorazepam 0.5 mg PO DAILY PRN Tobacco use date assessed: 10/10/24 Dental Screening Dental Screen Date: 10/10/24 Did you have a dental visit in the last 12 months?: No Did you have a dental problem in the last 6 months where you did not have access to dental care?: No Was dental information given to patient?: Patient has dentist HPI PE HPI Details 49 year-old male with history of psoriasis, and generalized anxiety disorder, here today for his physical exam. He is currently followed by dermatology, currently on Tremfya with psoriasis well controlled. He has been feeling well with anxiety controlled on escitalopram and takes lorazepam as needed for acute anxiety attacks which has been infrequent. [facility] Medical History Generalized anxiety disorder Psoriasis H/O multiple concussions Surgical History History of knee surgery Family History Father Essential hypertension Sister Depression Sister Mental health disorder Sister Mental health disorder Social History Household Members: Spouse and Children Housing: House Alcohol intake: current Alcohol intake frequency: a few times a week Alcohol type: beer Patient Tobacco Use Status: Never used Tobacco e-Cigarette/Vaping Use: Never Used service: No Current occupational status: employed Current occupation: [employer] Current occupational exposures/hazards: No Cognitive needs: No Hearing needs: No Vision needs: No Questionnaire PHQ-9 Over the last 2 weeks, how often have you been bothered by any of the following problems? 1. Little interest or pleasure in doing things: not at all 2. Feeling down, depressed, or hopeless: not at all 3. Trouble falling or staying asleep, or sleeping too much: not at all 4. Feeling tired or having little energy: not at all 5. Poor appetite or overeating: not at all 6. Feeling bad about yourself - or that you are a failure or have let yourself or your family down: not at all 7. Trouble concentrating on things, such as reading the newspaper or watching television: not at all 8. Moving or speaking so slowly that other people could have noticed. Or the opposite - being so fidgety or restless that you have been moving around a lot more than usual: not at all 9. Thoughts that you would be better off or of hurting yourself in some way: not at all Total score: 0 Depression Screening Interpretation: Negative Depression Screening Done: Yes 17496 - PHQ-9 Billing: Yes Source: Developed by Drs. René Coburn, Lidia Og, Lukasz Jovel and colleagues, with an educational marion from [employer]. Thrive Questionnaire Date Thrive assessed: 10/10/24 I am a: Patient What is your living situation today?: I have a steady place to live Within the past 12 months, did the food you bought not last and you didn't have the money to get more?: Never true Within the past 12 months, did you worry whether your food would run out before you got money to buy more?: Never true Do you have trouble paying for medicines?: No Do you have trouble getting transportation to medical appointments?: No Do you have trouble paying your heating and electricity bill?: No Do you have trouble taking care of your child, family member or friend?: No Do you have trouble with day-to-day activities such as bathing, preparing meals, shopping, managing finances, etc.?: No Are you currently unemployed and looking for a job?: No Are you interested in more education?: No Please select the resources that you would like help with: None Currently or been in a relationship where the following occur: No concerns reported THRIVE Score: 0 AUDIT C Alcohol Use Questionnaire (AUDIT-C) 1. How often do you have a drink containing alcohol?: 2-3 times a week 2. How many drinks containing alcohol do you have on a typical day when you are drinking?: 5 or 6 3. How often do you have six or more drinks on one occasion?: Monthly Total Score: 7 WILLA-7 AMB Questionnaire WILLA-7 Date WILLA - 7 assessed: 10/10/24 Feeling nervous, anxious, or on edge: 1 = Several days Not being able to stop or control worryin = Several days Worrying too much about different things: 1 = Several days Trouble relaxin = Several days Being so restless that it is hard to sit still: 1 = Several days Becoming easily annoyed or irritable: 1 = Several days Feeling afraid as if something awful might happen: 0 = Not at all Total WILLA-7 score (0-4 normal; 5-9 mild; 10-14 moderate; 15-21 severe): 6 Source: Developed by Drs. René Coburn, Lidia Og, Lukasz Jovel and colleagues, with an educational marion from [employer]. WILLA-7 Assessment Billing WILLA-7 Assessment Tool: WILLA-7 Assessment 16043 Review of Systems Const Reports no additional complaints Eyes Reports no additional complaints ENT Reports no additional complaints Card Denies chest pain, Denies irregular heart rhythm and Denies palpitations Resp Reports no additional complaints GI Reports no additional complaints Reports no additional complaints Musc Reports no additional complaints Skin/Breast Details: Currently sees Dr. Carr for his psoriasis, controlled with Tremfya Neuro Reports no additional complaints Psych Reports as per HPI Endo Denies palpitations Adam/Lymph Reports no additional complaints Aller/Immun Reports no additional complaints Physical exam (Primary Care) Vital Signs: Last Vital Signs Temp 98.0 F 10/10/24 15:46 Pulse 67 10/10/24 15:46 Resp 16 10/10/24 15:46 BP 130/80 10/10/24 16:16 Pulse Ox 97 10/10/24 15:46 Oxygen Delivery Method Room Air 10/10/24 15:46 BMI result Body Mass Index 30.0 Tobacco/Smoking Status: Tobacco use Status Tobacco use date assessed 10/10/24 10/10/24 15:48 Patient Tobacco Use Status Never used Tobacco 10/10/24 15:38 e-Cigarette/Vaping Use Never Used 10/10/24 15:38 PHQ-9: PHQ-9 Score PHQ-9: Total score 0 10/10/24 16:24 Depression Screening Interpretation: Negative Thrive Assessment: Date of Thrive Assessment Date Thrive assessed 10/10/24 10/10/24 15:48 Currently or been in a relationship where the following occur: No concerns reported Advance Care Planning discussion: Completed/Scanned Date of discussion: 10/10/24 Who was present: Patient Forms completed: Health Care Proxy Time spent: 16-45 minutes Actual minutes spent: 3 Const General: no acute distress, alert and Physically active Nutritional Appearance: overweight Orientation/consciousness: patient oriented x3 HENMT Head: Yes normocephalic General nose exam: Normal external nose present Face and sinus: Yes face symmetric Mouth: moist mucous membranes Eyes General: appearance normal, both eyes and all related structures Neck Neck: Yes full ROM, Yes no lymphadenopathy and Yes supple Thyroid: Thyroid normal Resp Effort & Inspection: normal respiratory effort and able to speak in complete sentences Auscultation: clear to auscultation bilaterally Cardio Rate: regular rate Rhythm: regular rhythm Heart sounds: S1 normal heart sound present and S2 normal heart sound present GI Inspection: Yes normal to inspection Palpation (GI): Soft to palpation, nontender, no guarding and no masses General: Yes no CVA tenderness Back/Spine/Pelvis Back: no CVA tenderness and No back tenderness Skin General skin exam: no rashes or lesions noted Neuro General: patient oriented x3, gait normal, tone normal, moves all extremities, Normal light touch and pain sensation, no focal motor deficits and CN's II-XI intact bilaterally Extrem General: Yes full ROM, Yes no joint enlargement, Yes no clubbing, cyanosis or edema and Yes normal gait Psych Appearance: grossly normal Mental Status: mental status grossly normal Attitude: cooperative Thought process: Normal thought process present Thought content: Normal thought content present Results Reviewed Results Reviewed: Name: Maurice Guzman Age/Sex: 49/M : 1975 Unit#: [id number] Attend Dr: Raquel Pathak MD Re10/10/24 Status: REG REF Location: [facility] Disch: SPEC : [id number] JAKE: 10/10/24 STATUS: COMP REQ : [id number] RECD: 10/10/24-[address]: Raquel Pathak MD COMP: 10/10/240 ENTERED: 10/10/24 [facility]: ORDERED: Met Prof Fast, AST, ALT, Lipid Panel, Vitamin D 25-OH Test Result Flag Reference Sodium 140 135-145 mmol/L Potassium 4.1 3.3-5.1 mmol/L CL 105 96-108 mmol/L CO2 28 22-29 mmol/L Gap 11 L 12-20 BUN 24 H 9-16 mg/dL Creat 1.12 0.5-1.4 mg/dL eGFR > 60 Chronic Kidney Disease: Estimated GFR < 60 mL/min/1.73m2 Severe Kidney Disease: Estimated GFR < 15 mL/min/1.73m2 FBS 94 60-99 mg/dL CA 9.9 8.4-10.2 mg/dL AST (GOT) 29 5-37 U/L ALT (GPT) 27 0-40 U/L Triglyceride 128 <150 mg/dL Desirable Triglyceride: less than 150 mg/dL Borderline High Triglyceride 150-199 mg/dL High Triglyceride: 200-499 mg/dL Very High Triglyceride: greater than or equal to 5OO mg/dL Cholesterol 210 H <200 mg/dL Desirable Cholesterol: less than 200 mg/dL Borderline High Cholesterol: 200-239 mg/dL High Cholesterol: greater than 239 mg/dL LDL Calculated 123 H <100 mg/dL Desirable LDL: less than 100 mg/dL Near Optimal/Above Optimal LDL: 110-129 mg/dL Borderline High LDL: 130-159 mg/dL High LDL: 160-189 mg/dL Very High LDL: greater than or equal to 190 mg/dL HDL 62 >40 mg/dL Desirable HDL: greater than 40 mg/dL Note: This HDL assay may give artificially low results in patients with liver disease. Vitamin D 25-OH 57.2 >30 ng/mL Health Based Reference Values* < 20 ng/mL Deficient 20-30 ng/mL Insufficient > 30 ng/mL Sufficient Name: Maurice Guzman Age/Sex: 49/M : 1975 Unit#: [id number] Attend Dr: Raquel Pathak MD Re10/10/24 Status: REG REF Location: [facility] Disch: SPEC : [id number] JAKE: 10/10/24 STATUS: COMP REQ : [id number] RECD: 10/10/[address]: Raquel Pathak MD COMP: 10/10/24 ENTERED: 10/10/24 [facility] DR: ORDERED: CBC Auto Diff Test Result Flag Reference WBC 5.8 4.8-10.8 X10*3/uL RBC 4.93 4.60-5.80 X10*6/uL HGB 14.7 14.0-18.0 g/dl HCT 44.1 42.0-52.0 % MCV 89.5 80.0-98.0 fL MCH 29.8 27.0-33.0 pg MCHC 33.3 31.0-36.0 g/dl RDW 11.9 11.0-16.0 % PLT 323 160-400 X10*3/uL MPV 9.8 9.4-12.4 fL Neut Pct Auto 41.4 L 45-73 % ImGran Pct Auto 0.2 0.0-0.4 % Lymp Pct Auto 41.0 H 20-40 % [place] Pct Auto 10.0 2-11 % Eos Pct Auto 6.0 H 0-4 % Baso Pct Auto 1.4 0-2 % NRBC Pct Auto 0.0 0.0-0.2 /100WBC ANC Neut Abs # 2.4 2.0-8.3 x10*3/uL ImGran Abs Auto 0.01 0.00-0.03 X10*3/uL Lymph Abs Auto 2.4 1.2-4.9 X10*3/uL [place] Abs Auto 0.6 0.1-1.2 X10*3/uL Eos Abs Auto 0.4 0.0-0.4 X10*3/uL Baso Abs Auto 0.1 0.0-0.2 X10*3/uL NRBC Abs Auto 0.000 0.0-0.012 X10*3/uL Coding Level of Care Code Est Pt Prev Care 40-64y(77144) Diagnoses Annual visit for general adult medical examination with abnormal findings Z00.01 Generalized anxiety disorder F41.1 Psoriasis L40.9 Incomplete rotator cuff tear or rupture of left shoulder, not specified as traumatic M75.112 Advanced directives, counseling/discussion Z71.89 Additional Codes Vital Signs *Quality* - Advance Care Planning discussion: Completed/Scanned ([id number]) Vital Signs *Quality* - Time spent: 16-45 minutes ([id number]) PHQ-9 - 63561 - PHQ-9 Billing: Yes ([id number]) WILLA-7 Assessment Billing - WILLA-7 Assessment Tool: WILLA-7 Assessment 93236 ([id number]) Assessment & Plan Assessment & Plan (1) Annual visit for general adult medical examination with abnormal findings: Code(s): Z00.01 - Encounter for general adult medical examination with abnormal findings Plan: Recent fasting lab results reviewed with patient. Continue regular dental visit every 6 months and regular eye exams, at least every 2 years. Take adequate calcium in diet and vitamin-D 3 at 2000 IU per cap once a day, in addition to weight-bearing exercises to help maintain good muscle tone and weight control. Instructed to do self testicular exam check for any mass, declined vaccines up-to-date with his Tdap. Cologuard testing ordered for colon cancer screening (2) Generalized anxiety disorder: Code(s): F41.1 - Generalized anxiety disorder Category: Medical Plan: Continued on escitalopram and hydroxyzine as well as lorazepam taken as needed for acute anxiety attacks (3) Psoriasis: Comment: Followed by dermatology, has lesions on scalp and arms Code(s): L40.9 - Psoriasis, unspecified Category: Medical Plan: Controlled on Tremfya, followed by Dr. Carr (4) Incomplete rotator cuff tear or rupture of left shoulder, not specified as traumatic: Code(s): M75.112 - Incomplete rotator cuff tear or rupture of left shoulder, not specified as traumatic Category: Medical Plan: Has appointment for her for arthroscopic surgery of left shoulder on 11/05/2024 (5) Advanced directives, counseling/discussion: Code(s): Z71.89 - Other specified counseling Plan: Initiated the conversation about Advanced Directives. Advanced Directives help patients prepare for current and future decisions about their medical treatment and place of care. Discussed with patient that it is a process where a patients current condition and prognosis are reviewed, their wishes for information regarding their illness are elicited, and likely medical dilemmas are presented and options discussed. Health care Proxy form completed. The form can be amended as needed, reviewed yearly and make changes as needed Orders: Orders Basic Metabolic Panel Fasting 09/24/25 F41.1 - Generalized anxiety disorder, L40.9 - Psoriasis, unspecified, Z71.89 - Other specified counseling Lipid Panel 09/24/25 F41.1 - Generalized anxiety disorder, L40.9 - Psoriasis, unspecified, Z71.89 - Other specified counseling Alanine Aminotransferase 09/24/25 F41.1 - Generalized anxiety disorder, L40.9 - Psoriasis, unspecified, Z71.89 - Other specified counseling Aspartate Amino Transferase 09/24/25 F41.1 - Generalized anxiety disorder, L40.9 - Psoriasis, unspecified, Z71.89 - Other specified counseling Vitamin D 25-OH Total 09/24/25 F41.1 - Generalized anxiety disorder, L40.9 - Psoriasis, unspecified, Z71.89 - Other specified counseling Referrals Cologuard Test Z12.11 - Encounter for screening for malignant neoplasm of colon, Z12.12 - Encounter for screening for malignant neoplasm of rectum Medications: Refilled escitalopram oxalate 5 mg PO DAILY 90 tabs 4RF escitalopram oxalate 10 mg PO DAILY 90 tabs 4RF
[2024-10-10 15:46] VITALS: BP 140/82; PULSE 67; RESP 16; TEMP 36.7; O2SAT 97
[2024-10-10 16:16] VITALS: BP 130/80
== END 2024-10-10 16:22 | disposition home or self-care (01) ==
LOC: HO.HMCC 15:22
PROVIDERS: PCP Internal Medicine; Visit Provider Internal Medicine
DX: Z00.01 Encounter for general adult medical examination with abnormal findings (principal); F41.1 Generalized anxiety disorder; L40.9 Psoriasis, unspecified; M75.112 Incomplete rotator cuff tear or rupture of left shoulder, not specified as traumatic; Z71.89 Other specified counseling; Z00.00 Encounter for general adult medical examination without abnormal findings

== ENCOUNTER 2024-10-30 06:52 | Day surgery (SDC) | payer OTHER, SELFPAY ==
[2024-10-28 12:44] VITALS: BMI 29.5
--- NOTE | 2024-10-29 09:03 | P.CONAN_ITS ---
HPI - Anesthesia Eval Consult details Narrative: 49yo M for Left Shoulder Arthroscopy possible rotator cuff PMFSH Active Problems Active Problems: All Active Problems Incomplete rotator cuff tear or rupture of left shoulder, not specified as traumatic (Acute) Generalized anxiety disorder (Acute) Psoriasis (Acute) Past Medical History Medical History Generalized anxiety disorder Psoriasis H/O multiple concussions Family History Family History Father Essential hypertension Sister Depression Sister Mental health disorder Sister Mental health disorder Surgical History Surgical History History of knee surgery Social History Social History Household Members: Spouse and Children Housing: House Alcohol intake: current Alcohol intake frequency: a few times a week Alcohol type: beer Patient Tobacco Use Status: Never used Tobacco e-Cigarette/Vaping Use: Never Used service: No Current occupational status: employed Current occupation: [employer] Current occupational exposures/hazards: No Cognitive needs: No Hearing needs: No Vision needs: No Meds Allergies Allergy/AdvReac Type Severity Reaction Status Date / Time No Known Allergies Allergy Verified 10/10/24 16:01 Home Medications ?Medication ?Instructions ?Recorded ?Confirmed ?Last Taken ?Type guselkumab 100 mg/mL subcutaneous 100 mg subcut Q8W 07/05/23 10/28/24 Unknown History auto-injector (Brittani) Exam Height,Weight and Vital Signs: Height 5 ft 9 in Weight 90.718 kg Assessment and Plan Assessment Anesthesia Assessment: Chart Reviewed
[2024-10-30 07:23] VITALS: BMI 29.2
--- NOTE | 2024-10-30 07:30 | MHC.SHP ---
Pre-Procedural Eval Section A - 24 Hr Update-Section A only Date of Service: 10/30/24 The patient is an INPATIENT: No Changes since office visit: No Cold of Flu in the past 2 weeks, No New Medical Problems, No Changes in Medication and No Patient answered all questions The patient has been examined within 24 hours of the surgical procedure. The History & Physical has been completed within 30 days and I have reviewed it.: Yes Section B - Complete if H&P > 30 days Chief Complaint: Strain of muscle(s) and tendon(s) of the rotator c Allergies: Allergies Allergy/AdvReac Type Severity Reaction Status Date / Time No Known Allergies Allergy Verified 10/10/24 16:01 Plan I have reviewed the history and physical and performed a pertinent physical examination on my patient. No changes have occurred unless specified. Time Spent With Patient Time: Total time managing care of this patient today ____ minutes.
[2024-10-30 07:34] VITALS: BP 123/84; PULSE 60; RESP 16; TEMP 36.6; O2SAT 96
[2024-10-30] MEDS: Lactated Ringers 1,000 ML 100 ML IVCONT (08:01)
--- NOTE | 2024-10-30 08:49 | HO.ANESPROP2 ---
[facility] Active Problems Active Problems: All Active Problems Incomplete rotator cuff tear or rupture of left shoulder, not specified as traumatic (Acute) Generalized anxiety disorder (Acute) Psoriasis (Acute) Past Medical History Medical History Generalized anxiety disorder Psoriasis H/O multiple concussions Family History Family History Father Essential hypertension Sister Depression Sister Mental health disorder Sister Mental health disorder Family history of problems with anesthesia: Yes Surgical History Surgical History History of knee surgery History of Problems with Anesthesia: No Social History Social History Household Members: Spouse and Children Housing: House Alcohol intake: current Alcohol intake frequency: a few times a week Alcohol type: beer Patient Tobacco Use Status: Former Tobacco user e-Cigarette/Vaping Use: Never Used Use of substances other than those prescribed or required for medical reasons: No Are you DNR?: No Advance Directives: No Advance Directives Information Provided: Yes Poor oral hygiene: No service: No Current occupational status: employed Current occupation: [employer] Current occupational exposures/hazards: No Cognitive needs: No Hearing needs: No Vision needs: No Meds Allergies Allergy/AdvReac Type Severity Reaction Status Date / Time No Known Allergies Allergy Verified 10/10/24 16:01 Active Medications: Current Medications Lactated Ringer's (Lr) 1,000 mls @ 100 mls/hr IVCONT .Q10H JACKSON Last Admin: 10/30/24 08:01 Dose: 100 mls/hr Home Medications ?Medication ?Instructions ?Recorded ?Confirmed ?Last Taken ?Type guselkumab 100 mg/mL subcutaneous 100 mg subcut Q8W 07/05/23 10/28/24 Unknown History auto-injector (Ceciliofya) Exam Exam Date and Time: oct 28 2024 Height,Weight and Vital Signs: Height 5 ft 9 in Weight 89.6 kg Last Vital Signs Temp 97.8 F 10/30/24 07:34 Pulse 60 10/30/24 07:34 Resp 16 10/30/24 07:34 BP 123/84 10/30/24 07:34 Pulse Ox 96 10/30/24 07:34 O2 Del Method Room Air 10/30/24 07:34 Pertinent Lab Results Pertinent Lab Results: reviewed Airway Mallampati Class: II TM Dist: <=3cm Neck ROM: Full Loose/Missing/Broken Teeth: No Heart: RRR Lungs: CTA both sides Other: neurologically intact Assessment and Plan Assessment Anesthesia Assessment: Anesthesia Plan Discussed and Chart Reviewed Final Anesthetic Review Family History of Problems with Anesthesia: Yes History of Problems with Anesthesia: No NPO: Yes ASA Class: II Final Preanesthetic Review: No Changes in Pt Med Stat, Meds/Allgs Chart Reviewed, Consent Obtained/Reviewed and Anes Risks/Benef Reviewed Patient Risk: Low Procedure Risk: Low Assessment/Block/Sedation in SS: Assess/Block/Sedation-SS Anesthetic Plan Anesthetic Plan: GA, Regional Block and Agree w/ Assess. and Plan Disposition: Standard PACU
[2024-10-30] MEDS: ceFAZolin Sodium/Dextrose,Iso 2 GM/50 ML PIGGYBACK IV (09:00)
[2024-10-30 10:40] VITALS: BP 143/84; PULSE 80; RESP 16; TEMP 36.3; O2SAT 95
[2024-10-30 10:45] VITALS: BP 138/87; PULSE 68; RESP 17; O2SAT 95
[2024-10-30 10:50] VITALS: BP 131/83; PULSE 60; RESP 17; O2SAT 95
[2024-10-30 10:55] VITALS: BP 136/89; PULSE 61; RESP 18; O2SAT 95
[2024-10-30 11:10] VITALS: BP 135/87; PULSE 66; RESP 18; TEMP 36.1; O2SAT 95
--- NOTE | 2024-10-30 12:40 | PM.OP ---
Brief Operative Note Date of Service: 10/30/24 Pre-op diagnosis: Left shoulder RTC tear Post-op diagnosis: same Procedure: Left shoulder RTC repair with SAD Implants: Meneses and Nephe 4.75 medial row x 1 5.0 lateral row x 2, medium Regeneten collagen bioinductive implant Surgeon: Josue Fuentes MD Anesthesia: GETA and regional Was an Solar System Installer used for this Procedure?: Yes Solar System Installer: Emy Hawk Estimated blood loss (mL): 25 IV fluids (mL): 1,000 Pathology: none sent Condition: stable Disposition: PACU
--- NOTE | 2024-10-30 13:08 | W.PM.OPN ---
Operative Note Operative Note Date of Service: 10/30/24 Narrative: Date of Service: 10/30/24 Pre-op diagnosis: Left shoulder RTC tear Post-op diagnosis: same Procedure: Left shoulder RTC repair with SAD Implants: Meneses and Nephe 4.75 medial row x 1 5.0 lateral row x 2, medium Regeneten collagen bioinductive implant Surgeon: Josue Fuentes MD Anesthesia: GETA and regional Was an Helpdesk Specialist used for this Procedure?: Yes Helpdesk Specialist: Emy Hawk Estimated blood loss (mL): 25 IV fluids (mL): 1,000 Pathology: none sent Condition: stable Disposition: PACU Procedure in detail: Patient was brought to the operating room and placed the the beach chair position. All bony prominences were well padded and the limb was prepped and draped in standard sterile fashion. A time out was called to identify proper site, proper procedure and proper surgeon. IV antibiotics per weight were administered. I began by making a posterolateral stab incision with a 15 blade. A blunt trochar was placed into the glenohumeral joint and I insufflated the joint with saline and a 30 degree arthroscope was placed. I established an outside- in anterior portal just distal to the biceps tendon. I then began my inspection of the glenohumeral joint. THe biceps was normal as were the articular surfacaces. The subscap was nl as well and the labruma and biceps anchor and inferior utter was normal. There was a high grade undersurface tear of the supraspinatus. This was tagged with a tycron stitch. I then removed the trochar and entered the subacromial space. A direct lateral portal was then established and I performed a bursectomy. The cuff was then examined. The Tycron suture was identified and the tear was completed. There was maybe 10-20 % of the fibers remaining. Once the tear was identified and the edges cleaned up I placed one medial row double loaded anchor after using a tap just adjacent to the articular cartilage and then brought the suture limbs (4) through the medial cuff. I added a looped suture on the leading edge of the Supraspinatus. I then debrided the bare area down to bleeding bone and, using a cross bridge configuration, brought 4 limbs to each of two lateral 5.0 anchors. This re-approximated the cuff anatomy anatomically. I then performed a 5 mm SAD. A Regeneten bioincductive patch was then placed over the repair. PEEK lane and one lateral bone anchor were used to position the graft. Once I was satisfied with the repair final images were captured and I removed all instrumentation. Portals were closed with nylon. Patient was placed in an abduction sling, extubated and brought to the recovery room in stable condition. There were no known complications. Small repair with graft protocol
== END 2024-10-30 11:43 | disposition home or self-care (01) ==
LOC: HO.SSS 06:52
PROVIDERS: PCP Internal Medicine; Visit Provider Orthopaedic Surgery
PROC: (CPT 29805; principal; 2024-10-30 08:30)
DX: S46.012A Strain of muscle(s) and tendon(s) of the rotator cuff of left shoulder, initial encounter (principal); X50.0XXA Overexertion from strenuous movement or load, initial encounter; Y93.H2 Activity, gardening and landscaping; Y92.39 Other specified sports and athletic area as the place of occurrence of the external cause; Y99.0 Civilian activity done for income or pay; F41.1 Generalized anxiety disorder; L40.9 Psoriasis, unspecified; Z87.820 Personal history of traumatic brain injury
CPT/HCPCS: 29827; 29826; C1713; C1763; J0131; J0171; J0665; J0690; J1100; J2003; J2250; J2405; J2704; J3010

== ENCOUNTER → 2024-10-30 06:52 | Outpatient (BNV) | payer OTHER, SELFPAY | PROVIDERS: PCP Internal Medicine; Visit Provider Orthopaedic Surgery | DX: S46.012A Strain of muscle(s) and tendon(s) of the rotator cuff of left shoulder, initial encounter (principal) | CPT/HCPCS: 29827 ==

== ENCOUNTER 2024-11-05 08:17 | Outpatient (AMB) | payer OTHER, SELFPAY ==
--- NOTE | 2024-11-05 08:22 | A.OFFVIS_ITS ---
Intake Visit Reasons: PO - Lt shoulder RTC repair with SAD 10/30/24 NE Intake Note: Maurice is a 49 year old right hand dominant male who presents today for a post operative appointment s/p Left shoulder RTC repair with SAD 10/30/24 NE. Patient reports having mild pain after surgery. Allergies No Known Allergies Allergy (Verified 11/05/24 08:33) HPI HPI PO - Lt shoulder RTC repair with SAD 10/30/24 NE: Details: Mr. 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 Fuentes. He presents to the office in the sling positioned appropriately. Reports pain is managed. Physical therapy has been scheduled to begin on 11/12/2024 here at [facility]. [facility] Medical History Generalized anxiety disorder Psoriasis H/O multiple concussions Surgical History History of knee surgery Family History Father Essential hypertension Sister Depression Sister Mental health disorder Sister Mental health disorder Social History Household Members: Spouse and Children Housing: House Alcohol intake: current Alcohol intake frequency: a few times a week Alcohol type: beer Patient Tobacco Use Status: Former Tobacco user e-Cigarette/Vaping Use: Never Used service: No Current occupational status: employed Current occupation: [employer] Current occupational exposures/hazards: No Cognitive needs: No Hearing needs: No Vision needs: No Review of Systems Const All systems reviewed & are unremarkable except as noted in HPI and below Physical Exam Const General: cooperative, healthy appearing and no acute distress Resp Effort & Inspection: normal respiratory effort and able to speak in complete sentences Extrem Other: Left shoulder incision sites are clean dry and intact. No surrounding erythema or drainage. No signs of infection. Sutures intact. Forward flexion and abduction to 45 degrees. External rotation to neutral. NVI. Assessment & Plan Assessment & Plan (1) Status post right rotator cuff repair: Code(s): Z98.890 - Other specified postprocedural states Category: Surgical (2) Status post subacromial decompression: Code(s): Z98.890 - Other specified postprocedural states Category: Surgical Plan Mr. 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 Fuentes. He presents to the office in the sling positioned appropriately. Reports pain is managed. Physical therapy has been scheduled to begin on 11/12/2024 here at [facility]. While in the office today, sutures are removed and Steri-Strips were applied. He is placed back into the abduction sling. He will remain in the sling for roughly 6 weeks postoperatively. He will attend physical therapy. Patient requested a prescription for ibuprofen 800 mg. I have sent ibuprofen 800 mg p.o. TID. He will follow up in [address] Fuentes, sooner if needed. Medications: New ibuprofen 800 mg PO TID PRN 90 tabs 0RF pain Coding Level of Care Code Global (71667) Diagnoses Status post right rotator cuff repair Z98.890 Status post subacromial decompression Z98.890
== END 2024-11-05 08:55 | disposition home or self-care (01) ==
LOC: HO.HOS 08:18
PROVIDERS: PCP Internal Medicine; Visit Provider Physician Assistant
DX: Z98.890 Other specified postprocedural states (principal)
CPT/HCPCS: 99024

== ENCOUNTER → 2024-11-05 08:17 | Outpatient (BNVA) | payer OTHER, SELFPAY | PROVIDERS: PCP Internal Medicine; Visit Provider Physician Assistant | DX: Z47.89 Encounter for other orthopedic aftercare (principal) | CPT/HCPCS: 99212 ==

== ENCOUNTER 2024-12-05 09:22 | Outpatient (AMB) | payer OTHER, SELFPAY ==
--- NOTE | 2024-12-05 09:38 | A.OFFVIS_ITS ---
Intake Visit Reasons: PO-Lt shoulder RTC repair with SAD 10/30/24 NE Intake Note: Maurice is a 49 year old right hand dominant male who presents today for a post operative appointment about 6 weeks s/p Left shoulder RTC repair with SAD 10/30/24 NE. He has continued to work with physical therapy. Patient reports th at he is doing well he has some pain with ROM. Allergies No Known Allergies Allergy (Verified 12/05/24 09:41) HPI HPI PO-Lt shoulder RTC repair with SAD 10/30/24 NE: Details: 6 weeks status post left shoulder rotator cuff repair doing well. He has 1 subdeltoid hot spot when he abducts his arm bothers him occasionally. Otherwise he states he is doing very well. [facility] Medical History Generalized anxiety disorder Psoriasis H/O multiple concussions Surgical History History of knee surgery Family History Father Essential hypertension Sister Depression Sister Mental health disorder Sister Mental health disorder Social History Household Members: Spouse and Children Housing: House Alcohol intake: current Alcohol intake frequency: a few times a week Alcohol type: beer Patient Tobacco Use Status: Former Tobacco user e-Cigarette/Vaping Use: Never Used service: No Current occupational status: employed Current occupation: [employer] Current occupational exposures/hazards: No Cognitive needs: No Hearing needs: No Vision needs: No Physical Exam Extrem Other: 35 degrees of external rotation abduction to 90 forward flexion to 140 internal rotation to S1 portals clean dry and intact Assessment & Plan Assessment & Plan (1) Status post right rotator cuff repair: Code(s): Z98.890 - Other specified postprocedural states Category: Surgical Plan: Maurice is doing very well. Follow up 6 weeks. Continue PT. May DC sling. Coding Level of Care Code Global (60024) Diagnoses Status post right rotator cuff repair Z98.890
== END 2024-12-05 10:25 | disposition home or self-care (01) ==
LOC: HO.HOS 09:23
PROVIDERS: PCP Internal Medicine; Visit Provider Orthopaedic Surgery
DX: Z98.890 Other specified postprocedural states (principal)
CPT/HCPCS: 99024

== ENCOUNTER → 2024-12-05 09:22 | Outpatient (BNVA) | payer OTHER, SELFPAY | PROVIDERS: PCP Internal Medicine; Visit Provider Orthopaedic Surgery | DX: M25.512 Pain in left shoulder (principal); Z98.890 Other specified postprocedural states | CPT/HCPCS: 99212 ==

== ENCOUNTER 2025-01-16 08:52 | Outpatient (AMB) | payer OTHER, SELFPAY ==
--- NOTE | 2025-01-16 09:00 | A.OFFVIS_ITS ---
Intake Visit Reasons: PO-Lt shoulder RTC repair with SAD 10/30/24 NE Intake Note: Maurice is a 49 year old right hand dominant male who presents today for a post operative appointment s/p Left shoulder RTC repair with SAD 10/30/24 NE. He remains out of work at this time. Patient reports he is havijng limited ROM as well as a grinding feeling with rotation of the wrist, and clicking with abduction of the shoulder. Has been attending physical therapy for about 12 weeks, but has not yet started strength exercises. He is still out of work, still not ready to return to work as work requires heavy lifting. Allergies No Known Allergies Allergy (Verified 01/16/25 10:00) HPI HPI PO-Lt shoulder RTC repair with SAD 10/30/24 NE: Details: Maurice is a 49 year old right hand dominant male who presents today for a post operative appointment s/p Left shoulder RTC repair with SAD 10/30/24 NE. He remains out of work at this time. Patient reports he is havijng limited ROM as well as a grinding feeling with rotation of the wrist, and clicking with abduction of the shoulder. Has been attending physical therapy for about 12 weeks, but has not yet started strength exercises. He is still out of work, still not ready to return to work as work requires heavy lifting. [facility] Medical History Generalized anxiety disorder Psoriasis H/O multiple concussions Surgical History History of knee surgery Family History Father Essential hypertension Sister Depression Sister Mental health disorder Sister Mental health disorder Social History Household Members: Spouse and Children Housing: House Alcohol intake: current Alcohol intake frequency: a few times a week Alcohol type: beer Patient Tobacco Use Status: Former Tobacco user e-Cigarette/Vaping Use: Never Used service: No Current occupational status: employed Current occupation: [employer] Current occupational exposures/hazards: No Cognitive needs: No Hearing needs: No Vision needs: No Physical Exam Extrem Other: 40/90/130/hp smooth arc of motion subdeltoid sorenesswith abduction Assessment & Plan Assessment & Plan (1) Status post right rotator cuff repair: Code(s): Z98.890 - Other specified postprocedural states Category: Surgical Plan: s/p RTC repair doing well. 3 mo post op and smooth arc of motion but not without soresness jg sub deltoid. Continue gentle PT and may beging light stre ngthening. f/u 6 weeks Out of work status to remain in place. Coding Level of Care Code Global (20371) Diagnoses Status post right rotator cuff repair Z98.890
== END 2025-01-16 09:27 | disposition home or self-care (01) ==
LOC: HO.HOS 08:53
PROVIDERS: PCP Internal Medicine; Visit Provider Orthopaedic Surgery
DX: Z98.890 Other specified postprocedural states (principal)
CPT/HCPCS: 99024

== ENCOUNTER → 2025-01-16 08:52 | Outpatient (BNVA) | payer OTHER, SELFPAY | PROVIDERS: PCP Internal Medicine; Visit Provider Orthopaedic Surgery | DX: Z98.890 Other specified postprocedural states (principal) | CPT/HCPCS: 99212 ==

== ENCOUNTER 2025-02-27 09:08 | Outpatient (AMB) | payer OTHER, SELFPAY ==
--- NOTE | 2025-02-27 09:15 | MHC.OFFVIS ---
Vital Signs 02/27/25 09:16 Height 5 ft 9 in Weight 200 lb BMI 29.5 Intake Visit Reasons: OV-Lt shoulder RTC 10/30/24 Intake Note: Maurice is a 49 year old right hand dominant male who presents today for a follow up appointment about 3 months s/p Left shoulder RTC repair with SAD 10/30/24 NE. This is a Work Related injury from 04/24/2024 - & remains out of work at this time. He is attending Physical Therapy with [facility] in [place] - he has one visit left but would like to schedule more Currently he reports that he is doing well, continues to struggle with ROM above shoulder height. With this ROM he has some painful clicking. Allergies No Known Allergies Allergy (Verified 01/16/25 10:00) HPI HPI OV-Lt shoulder RTC 10/30/24: Details: Maurice is a 49 year old right hand dominant male who presents today for a follow up appointment about 4 months s/p Left shoulder RTC repair with SAD 10/30/24 NE. This is a Work Related injury from 04/24/2024 - & remains out of work at this time. He is attending Physical Therapy with [facility] in [place] - he has one visit left but would like to schedule more Currently he reports that he is doing well, occasional soreness with ROM above shoulder height. The clicking he had at last visit has not improved but still happens occasionally. Instead of feeling it under his deltoid however he feels it over the superior shoulder. [facility] Medical History Generalized anxiety disorder Psoriasis H/O multiple concussions Surgical History History of knee surgery Family History Father Essential hypertension Sister Depression Sister Mental health disorder Sister Mental health disorder Social History Household Members: Spouse and Children Housing: House Alcohol intake: current Alcohol intake frequency: a few times a week Alcohol type: beer Patient Tobacco Use Status: Former Tobacco user e-Cigarette/Vaping Use: Never Used service: No Current occupational status: employed Current occupation: [employer] Current occupational exposures/hazards: No Cognitive needs: No Hearing needs: No Vision needs: No Physical Exam Exam Exam: No acute distress. 30/90/130/S1 4+/5 gentle empty can Portals clean dry and intact Vital Signs: BMI result Body Mass Index 29.5 Assessment & Plan Assessment & Plan (1) Incomplete rotator cuff tear or rupture of left shoulder, not specified as traumatic: Code(s): M75.112 - Incomplete rotator cuff tear or rupture of left shoulder, not specified as traumatic Category: Medical Plan: Status post rotator cuff repair with Regeneten collagen bio implant. He is doing well. The clicking has subsided although not completely. He has stronger than he was at last visit. He may return to work with light duty. No overhead work and no lifting over 15 lb. We reviewed his expected duties at work and this is acceptable to him and me. Follow up 6 weeks. Coding Level of Care Code Est Pt Level 3 (32136) Diagnoses Incomplete rotator cuff tear or rupture of left shoulder, not specified as traumatic M75.112
[2025-02-27 09:16] VITALS: BMI 29.5
== END 2025-02-27 09:35 | disposition home or self-care (01) ==
LOC: HO.HOS 09:09
PROVIDERS: PCP Internal Medicine; Visit Provider Orthopaedic Surgery
DX: M75.112 Incomplete rotator cuff tear or rupture of left shoulder, not specified as traumatic (principal)
CPT/HCPCS: 99213

== ENCOUNTER → 2025-02-27 09:08 | Outpatient (BNVA) | payer OTHER, SELFPAY | PROVIDERS: PCP Internal Medicine; Visit Provider Orthopaedic Surgery | DX: M75.112 Incomplete rotator cuff tear or rupture of left shoulder, not specified as traumatic (principal) | CPT/HCPCS: 99212 ==

== ENCOUNTER 2025-03-11 14:56 | Outpatient (RCR) | payer OTHER, SELFPAY ==
--- NOTE | 2024-11-12 15:59 | MHC.PT.EP ---
[facility] Office [place] [facility] [place] Office [address] Valerio [address] [phone] F: [phone] F: [phone] F: [phone] F: [phone] Physical Therapy Plan of Care Date of Evaluation: 11/12/24 Date of Surgery: 10/30/2024 Diagnosis: S/P Lt SAD AND SUPRASPINATUS REPAIR W GRAFT ON 10/30/[address] POWELL (IN OR NOTE, PER DR POWELL-> Small repair with graft protocol. Assessment: 49 YO MALE REF TO PT S/P Lt SAD AND SUPRASPINATUS REPAIR W GRAFT ON 10/30/[address] POWELL. 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 HE IS Rt HAND DOMINANT. THE Pt PRESENTED IN Lt SH IMMOB AND HAS THE POST-OP FINDINGS OF DECR ROM, PAIN, DECR ADL PERF, TIGHT Lt ANT SH/ DECR STRENGTH IN Lt POST RC/ SCAP. HE IS MOTIVATED FOR POST-OP PT AND THE ULTIMATE GOAL OF GRADUALLY RETURNING TO REG ADLs AND RTW. Frequency and Duration: The patient will be seen 2 x WK x 10 WKS Short Term Goals: *DECR Lt SH PAIN TOP 2-3/10 *IMPROVE ROM Lt SH PER SMALL REPAIR WITH GRAFT PROTOCOL IN CHART *IMPROVE POSTURAL AWARENESS/ SCAP MM ACTIV *RE-EDUC RE ACUTE POST-OP PRECAUTIONS/ MINIMIZE STRESS TO Lt SH REPAIR Block Tester Goals: *INDEP ADLs/ RTW *INDEP W PROGRESSIVE HEP *IMPROVED SPADI, AT EVAL 97/130 Treatment Plan: Modalities to reduce pain, spasms and effusion. Manual therapy to restore motion and function. Therapeutic exercise to improve strength and flexibility. Neuromuscular re-education for posture and balance. Therapeutic activities to return to functional activities of daily living. Electronically signed by: JACEY WASHINGTON,PT Please sign and return to therapist. Thank you for your referral.
--- NOTE | 2025-05-14 13:25 | MHC.PT.DC ---
[facility] [place] Office [address] Kenzie Valerio [address] [phone] F: [phone] F: [phone] F: [phone] F: [phone] Physical Therapy Discharge Report Diagnosis: S/P Lt SAD AND SUPRASPINATUS REPAIR W GRAFT ON 10/30/[address] POWELL (IN OR NOTE, PER DR POWELL-> Small repair with graft protocol. Date of Surgery: 10/30/2024 Date of Evaluation: 11/12/24 Date of Discharge: 03/11/25 Treatments to Date: 29 Cancellations to Date: No Shows to Date: Discharge Status: Achieved Goals Improved Function Independent with HEP Discharge Summary: ED HAS MET MOST PT GOALS BUT , AT HIS LAST ATTENDED PT APPT ON 03/11/25, HE NOTED CONTINUED TROUBLE WITH PUSHING MOTION, HE HAS RTW ON LIGHT DUTY. ED HAS A THOROUGH HEP AND IS MOTIVATED TO REGAIN MORE STRENGTH AND FUNCTIONAL ENDURANCE IN HIS SHOULDER COMPLEX. HIS SPADI SCORE AT D/C WAS 66/130, AT EVAL IT WAS 97/130. Electronically signed by: JACEY WASHINGTON, PT Please sign and return to therapist. Thank you for your referral.
== END 2025-05-14 13:26 | disposition home or self-care (01) ==
LOC: HO.PT 14:56
PROVIDERS: PCP Internal Medicine; Visit Provider Physician Assistant
DX: M75.112 Incomplete rotator cuff tear or rupture of left shoulder, not specified as traumatic (principal); Z98.890 Other specified postprocedural states
CPT/HCPCS: 97035; 97110; 97112; 97140; 97162; 97164; 97530; 97535

== ENCOUNTER → 2025-03-24 08:29 | Outpatient (BNVA) | payer OTHER, SELFPAY | PROVIDERS: PCP Internal Medicine; Visit Provider Internal Medicine | DX: L23.7 Allergic contact dermatitis due to plants, except food (principal); Z02.79 Encounter for issue of other medical certificate | CPT/HCPCS: 99202 ==

== ENCOUNTER 2025-04-10 14:38 | Outpatient (AMB) | payer OTHER, SELFPAY ==
--- NOTE | 2025-04-10 14:40 | A.OFFVIS_ITS ---
Intake Visit Reasons: OV-WC Lt RTC repair 10/30/24 Intake Note: Maurice is a 49 year old right hand dominant male who presents today for a follow up appointment about 5 months s/p Left shoulder RTC repair with SAD 10/30/24 NE. This is a work related injury. At his last visit we gave him a note to return to work on light duty. He continues to work with [employer]. Patient reports that he is doing well, has had returned to work on light duty. He does continue to have sharp pain with various movements - this does take a bit to resolve. He is taking Diclofenac BID. Allergies No Known Allergies Allergy (Verified 04/10/25 14:42) HPI HPI OV-WC Lt RTC repair 10/30/24: Details: Maurice is a 49 year old right hand dominant male who presents today for a follow up appointment about 5 months s/p Left shoulder RTC repair with SAD 10/30/24 NE. This is a work related injury. At his last visit we gave him a note to return to work on light duty. He continues to work with [employer]. Patient reports that he is doing well, has had returned to work on light duty. He does have occasional sharp pain with overhead movements. He is taking Diclofenac BID. [facility] Medical History Generalized anxiety disorder Psoriasis H/O multiple concussions Surgical History History of knee surgery Family History Father Essential hypertension Sister Depression Sister Mental health disorder Sister Mental health disorder Social History Household Members: Spouse and Children Housing: House Alcohol intake: current Alcohol intake frequency: a few times a week Alcohol type: beer Patient Tobacco Use Status: Former Tobacco user e-Cigarette/Vaping Use: Never Used service: No Current occupational status: employed Current occupation: [employer] Current occupational exposures/hazards: No Cognitive needs: No Hearing needs: No Vision needs: No Physical Exam Exam Exam: Full ROM 40/89/140/L5 Neg EC Mildly + Hawkin's Neg lift off Results Reviewed Results Reviewed: I personally reviewed relevant radiographs. Left shoulder RTC anchors in place with no cutout Assessment & Plan Assessment & Plan (1) Status post right rotator cuff repair: Code(s): Z98.890 - Other specified postprocedural states Category: Surgical Plan: Excellent motion and strength with one position that occasionally causes sharp pain with overhead abduction. This is improving. Cont HEP and light duty. F/u 6- 8 weeks. Orders: Orders XR shoulder LT min 2V 04/10/25 M25.519 - Pain in unspecified shoulder Coding Level of Care Code Est Pt Level 3 (69934) Diagnoses Status post right rotator cuff repair Z98.890
== END 2025-04-10 15:15 | disposition home or self-care (01) ==
LOC: HO.HOS 14:39
PROVIDERS: PCP Internal Medicine; Visit Provider Orthopaedic Surgery
DX: Z47.89 Encounter for other orthopedic aftercare (principal); S46.012D Strain of muscle(s) and tendon(s) of the rotator cuff of left shoulder, subsequent encounter
CPT/HCPCS: 99213

== ENCOUNTER 2025-04-10 14:38 | Outpatient (REF) | payer OTHER, SELFPAY ==
--- NOTE | ~2025-04-10 | XR_ITS ---
EXAMINATION: XR SHOULDER, LEFT CLINICAL INFORMATION: M25.519 - Pain in unspecified shoulder COMPARISON: X-ray 04/24/2024 TECHNIQUE: Three views of the left shoulder. FINDINGS: Mild acromioclavicular arthritis. Postsurgical changes with anchors in the greater tuberosity. No acute fracture, dislocation or suspicious osseous lesion. Glenohumeral joint space is maintained. No abnormal soft tissue calcification.. XR/XR shoulder LT min 2V IMPRESSION: Mild acromioclavicular arthritis Electronically signed by: Hernandez Harris MD 04/10/2025 03:29 PM EDT
== END 2025-04-10 14:39 | disposition home or self-care (01) ==
LOC: HO.HOSX 14:38
PROVIDERS: PCP Internal Medicine; Visit Provider Orthopaedic Surgery
DX: M25.512 Pain in left shoulder (principal); Z98.890 Other specified postprocedural states
CPT/HCPCS: 73030; 99212

== ENCOUNTER → 2025-04-10 15:05 | Outpatient (BNV) | payer OTHER, SELFPAY | PROVIDERS: PCP Internal Medicine; Visit Provider Radiology Diagnostic Ultrasound | DX: M19.012 Primary osteoarthritis, left shoulder (principal) | CPT/HCPCS: 73030 ==

== ENCOUNTER 2025-05-07 06:01 | Outpatient (REF) | payer OTHER, SELFPAY ==
[2025-05-07 10:52] LABS: MANUAL DIFF FLAG NO
[2025-05-07 11:04] LABS: Hematocrit 44.5 % (42.0-52.0); Hemoglobin 14.8 g/dl (14.0-18.0); Imm Gran Abs Auto 0.01 X10*3/uL (0.00-0.03); Imm Gran Pct Auto 0.2 % (0.0-0.4); Lymphocytes Absolute Auto 2.4 X10*3/uL (1.2-4.9); Mean Corpuscular HGB Conc 33.3 g/dl (31.0-36.0); Mean Corpuscular Hemoglobin 29.7 pg (27.0-33.0); Mean Corpuscular Volume 89.2 fL (80.0-98.0); NRBC Abs Auto 0.000 X10*3/uL (0.0-0.012); NRBC Pct Auto 0.0 /100WBC (0.0-0.2); Platelet Count 341 X10*3/uL (160-400); Red Blood Count 4.99 X10*6/uL (4.60-5.80); White Blood Count 5.4 X10*3/uL (4.8-10.8)
[2025-05-07 11:28] LABS: Alanine Aminotransferase 38 U/L (0-40); Albumin Level 4.5 g/dL (3.5-5.0); Alkaline Phosphatase 103 U/L (39-117); Anion Gap 13 (12-20); Aspartate Amino Transferase 29 U/L (5-37); Blood Urea Nitrogen 23 mg/dL (9-16); Calcium 9.9 mg/dL (8.4-10.2); Carbon Dioxide 26 mmol/L (22-29); Chloride 106 mmol/L (96-108); Estimated Glomerular Filt Rate > 60; Potassium 3.8 mmol/L (3.3-5.1); Sodium 141 mmol/L (135-145); Total Protein 7.2 g/dL (6.5-8.0)
[2025-05-10 18:02] LABS: TS Negative Control Passed; TS Panel A 1; TS Panel B 0; TS Positive Control Passed; TSpotTB Negative (Negative)
== END 2025-05-07 06:02 | disposition home or self-care (01) ==
LOC: HO.HMGCLDS 06:01
PROVIDERS: PCP Internal Medicine; Visit Provider Nurse Practitioner Family
DX: L40.0 Psoriasis vulgaris (principal); Z11.1 Encounter for screening for respiratory tuberculosis
CPT/HCPCS: 36415; 80053; 85025; 86481

== ENCOUNTER 2025-05-26 13:55 | Outpatient (AMB) | payer OTHER, SELFPAY ==
[2025-05-26 13:57] VITALS: BMI 29.5
--- NOTE | 2025-05-26 13:57 | A.OFFVIS_ITS ---
Vital Signs 05/26/25 13:57 Height 5 ft 9 in Weight 200 lb BMI 29.5 Intake Visit Reasons: OV-WC- Lt RTC Repair 10/30/24 Intake Note: Maurice is a 49 year old right hand dominant male who presents today for a follow up appointment about 7 months s/p Left shoulder RTC repair with SAD 10/30/24 NE. This is a work related injury, at his last visit he was to continue on light du ty. Patient reports that he is doing well, he continues to have some stifness with above the head ROM. He would like to RTW Allergies No Known Allergies Allergy (Verified 05/26/25 13:58) HPI HPI OV-WC- Lt RTC Repair 10/30/24: Details: Maurice is a 49 year old right hand dominant male who presents today for a follow up appointment about 7 months s/p Left shoulder RTC repair with SAD 10/30/24 NE. This is a work related injury, at his last visit he was to continue on light duty. Patient reports that he is doing well, he continues to have some stifness with above the head ROM. He would like to RTW [facility] Medical History Generalized anxiety disorder Psoriasis H/O multiple concussions Surgical History History of knee surgery Family History Father Essential hypertension Sister Depression Sister Mental health disorder Sister Mental health disorder Social History Household Members: Spouse and Children Housing: House Alcohol intake: current Alcohol intake frequency: a few times a week Alcohol type: beer Patient Tobacco Use Status: Former Tobacco user e-Cigarette/Vaping Use: Never Used service: No Current occupational status: employed Current occupation: [employer] Current occupational exposures/hazards: No Cognitive needs: No Hearing needs: No Vision needs: No Physical Exam Exam Exam: Smooth arc of motion. Strong empty can. negative impingement Vital Signs: BMI result Body Mass Index 29.5 Assessment & Plan Assessment & Plan (1) Status post right rotator cuff repair: Code(s): Z98.890 - Other specified postprocedural states Category: Surgical Plan: Six months status post left rotator cuff repair doing well. He can return to work with the following restrictions: No overhead lifting. Otherwise no restrictions. Follow up 6 weeks. Anticipate return to unrestricted duty in 3 months. Coding Level of Care Code Est Pt Level 3 (10679) Diagnoses Status post right rotator cuff repair Z98.890
== END 2025-05-26 14:22 | disposition home or self-care (01) ==
LOC: HO.HOS 13:56
PROVIDERS: PCP Internal Medicine; Visit Provider Orthopaedic Surgery
DX: S46.012D Strain of muscle(s) and tendon(s) of the rotator cuff of left shoulder, subsequent encounter (principal); Z47.89 Encounter for other orthopedic aftercare
CPT/HCPCS: 99213

== ENCOUNTER → 2025-05-26 13:55 | Outpatient (BNVA) | payer OTHER, SELFPAY | PROVIDERS: PCP Internal Medicine; Visit Provider Orthopaedic Surgery | DX: Z09 Encounter for follow-up examination after completed treatment for conditions other than malignant neoplasm (principal); Z87.39 Personal history of other diseases of the musculoskeletal system and connective tissue; Z98.890 Other specified postprocedural states | CPT/HCPCS: 99212 ==